=== PATIENT | female | born 1970 | race Caucasian/White ===

== ENCOUNTER 2019-07-07 11:51 | Outpatient (CLI) | payer OTHER, SELFPAY ==
--- NOTE | ~2019-07-07 | XR_ITS ---
EXAMINATION: XR chest 2V 07/07/2019 12:19 INDICATION: Cough PROCEDURE: 2 view chest COMPARISON: No prior studies for comparison. FINDINGS: The lungs are clear. The cardiomediastinal silhouette is within normal limits. There are no pleural effusions. There is no pneumothorax suspected. IMPRESSION: 1: NO ACUTE CARDIOPULMONARY DISEASE. Reviewed, dictated and finalized at location B. ICAL COORDINATOR
== END 2019-07-07 11:52 | disposition home or self-care (01) ==
LOC: ANHIMG 11:58
PROVIDERS: PCP Family Medicine; Visit Provider Physician Assistant
DX: R05 Cough (principal); R06.02 Shortness of breath
CPT/HCPCS: 71046

== ENCOUNTER 2019-08-01 19:36 | Emergency (ER) | payer OTHER, SELFPAY ==
--- NOTE | ~2019-08-01 | XR_ITS ---
EXAMINATION: XR_[id number]_CR EXAM DATE: 08/01/2019 20:01 INDICATION: Right rib pain after cough. TECHNIQUE: Frontal projection of the upper right ribs, frontal projection of the lower right ribs, ob lique projection of the right ribs, frontal chest x-ray(s) for interpretation. Comparison is made to prior examination from 07/07/2019. FINDINGS: There are no displaced acute right rib fractures identified. There is no soft tissue abno rmality seen. No confluent consolidation, pneumothorax or pleural effusion suspected. Consider educat ing patient that even if there is a radiographically occult nondisplaced rib fracture, there is no sp ecific treatment other than to refrain from activity that prevents healing. IMPRESSION: No displaced right rib fractures. Reviewed, dictated and finalized at location A.
[2019-08-01 19:42] VITALS: BP 153/86; PULSE 86; RESP 20; TEMP 36.9; O2SAT 100
--- NOTE | 2019-08-01 19:59 | ED.GENADULT ---
HPI - General Adult General Chief complaint: Unspecified Stated complaint: cough, rib pain Time Seen by Provider: 08/01/19 19:58 Source: patient and RN notes reviewed Mode of arrival: ambulatory Limitations: no limitations History of Present Illness HPI narrative: Pt is a 48 y/o female who presents to the ED with c/o rt posterior rib pain starting roughly 45 minutes ago this evening. She notes that she has had a cough for awhile, and states that she is currently on her 3rd round of steroids. Pt notes that she simultaneously coughed and twisted her torso this evening, when she felt a pop in her rt lower posterior ribs. She states that she has had pain in her rt lower posterior ribs ever since. Pt denies any recent fever or chills. MD complaint: Rib Pain Onset (ago): minute(s) (45) Location: back (rt lower posterior ribs) Associated symptoms: cough Related Data Allergies Allergy/AdvReac Type Severity Reaction Status Date / Time amoxicillin Allergy Unknown Itching Verified 07/07/19 15:27 Review of Systems Review of Systems: All systems reviewed & are unremarkable except as noted in HPI and below Constitutional: Constitutional: Denies chills and Denies fever(s) Respiratory: Respiratory: Reports cough Musculoskeletal: Musculoskeletal: Reports back pain (rt lower posterior rib pain) PMFSH Past Medical History Medical History Cough GERD (gastroesophageal reflux disease) Surgical History Surgical History Hx of tonsillectomy S/P bilateral mastectomy Family History Family History (Updated 11/29/15 @ 23:19 by DOCTOR UNKNOWN) Father Hypertension Mother Family history of malignant neoplasm of breast in first degree relative Social History Social History Smoking status: Never smoker Second hand tobacco smoke exposure: No Alcohol intake: never Substance use: never Substance use type: does not use Gender identity (if verbalized by the patient): Female Exam Narrative: Exam Narrative: APPEARANCE: No acute distress, nontoxic, resting in bed EYES: EOMI HEENT: Normocephalic, atraumatic, OMM RESPIRATORY: No respiratory distress Clear to auscultation bilaterally with no rhonchi wheezing or rales. CARDIOVASCULAR: Regular rate and rhythm without murmurs rubs or gallops. ABDOMINAL: Soft, nontender, nondistended, no rebound or guarding MUSCULOSKELETAl: Moves all extremities. No clubbing, cyanosis or edema. Back: Tender to palpation over posterior lateral right ribs and region of ribs 9 and 10, pain increased with deep inspiration coughing and rotation of the torso no midline thoracic lumbar tenderness palpation NEURO: Awake and alert. Following commands, speech normal, no focal deficits SKIN:: Warm, dry. No rashes lesions or abrasions PSYCHIATRIC: Normal affect/mood, Course Course Emergency Course: Discussed with patient results of workup and diagnosis. Discussed need for follow-up with primary care, proper use of medication, and reasons to return to the emergency department. Patient understands and agrees to current treatment plan. Patient is currently on inhaler steroids and Tessalon Perles Vital Signs Vital signs: Vital Signs Temperature 98.5 F 08/01/19 19:42 Pulse Rate 86 08/01/19 19:42 Respiratory Rate 20 08/01/19 19:42 Blood Pressure 153/86 H 08/01/19 19:42 Pulse Oximetry 100 08/01/19 19:42 Temperature 98.5 F 08/01/19 19:42 Pulse Rate 86 08/01/19 19:42 Respiratory Rate 20 08/01/19 19:42 Blood Pressure 153/86 H 08/01/19 19:42 Pulse Oximetry 100 08/01/19 19:42 Medical Decision Making Vital Signs Vital Signs: Vital Signs Temperature 98.5 F 08/01/19 19:42 Pulse Rate 86 08/01/19 19:42 Respiratory Rate 20 08/01/19 19:42 Blood Pressure 153/86 H 08/01/19 19:42 Pulse Oximetry 100 08/01/19 19:42 Temperature 9
== END 2019-08-01 20:35 | disposition home or self-care (01) ==
PROVIDERS: Emergency Provider Emergency Medicine; PCP Family Medicine
DX: R07.89 Other chest pain (principal); K21.9 Gastro-esophageal reflux disease without esophagitis; Z90.13 Acquired absence of bilateral breasts and nipples
CPT/HCPCS: 71101; 99283; A9270

== ENCOUNTER 2019-08-23 14:11 | Outpatient (CLI) | payer OTHER, SELFPAY | END 2019-08-23 14:12 | disposition home or self-care (01) | PROVIDERS: PCP Family Medicine; Visit Provider Physician Assistant | DX: R05 Cough (principal) | CPT/HCPCS: 36415; 86615 ==

== ENCOUNTER 2020-03-23 09:52 | Outpatient (CLI) | payer OTHER, SELFPAY | END 2020-03-23 09:53 | disposition home or self-care (01) | PROVIDERS: PCP Family Medicine; Visit Provider Obstetrics & Gynecology Gynecology | DX: E55.9 Vitamin D deficiency, unspecified (principal) | CPT/HCPCS: 36415; 82306 ==

== ENCOUNTER 2020-05-24 07:07 | Outpatient (CLI) | payer OTHER, SELFPAY ==
[2020-05-24 07:30] LABS: Add Urine Microscopic? YES; Appearance Urine Cloudy (Clear); Basophils Percent Auto 0.4 % (0.2-1.2); Bilirubin Urine Negative (Negative); Blood Urine Negative (Negative); Color Urine Yellow (Yellow); Eosinophils Absolute Auto 0.1 K/mm3 (0-0.3); Eosinophils Percent Auto 1.6 % (0-4.4); Glucose Urine UA Negative (Negative); Hematocrit 36.3 % (37.0-47.0); Hemoglobin 12.1 g/dL (12.0-15.0); Immature Granulocyte Absolute 0.03 K/mm3 (0.00-0.031); Immature Granulocyte Percent A 0.3 % (0-0.5); Ketones Urine Negative (Negative); Leukocyte Esterase Ur Negative LEU/UL (NEGATIVE); Lymphocytes Absolute Auto 1.64 K/mm3 (0.9-3.2); Lymphocytes Percent Auto 18.3 % (18.3-44.2); Mean Corpuscular HGB Conc 33.3 g/dl (32-36); Mean Platelet Volume 9.2 fl (7.4-10.4); Monocytes Absolute Auto 0.7 K/mm3 (0.1-0.6); Monocytes Percent Auto 7.7 % (2.6-8.5); Mucus Urine Rare /lpf; Neutrophils Absolute Auto 6.4 K/mm3 (1.3-6.7); Neutrophils Percent Auto 71.7 % (45.5-73.1); Nitrate Urine Negative (Negative); Platelet Count Result 273 k/mm3 (150-375); Protein Urine Negative (Negative); Red Blood Count 3.78 M/mm3 (4.2-5.4); Red Cell Distribution Width 12.2 % (11.5-14.5); Squamous Epithelial Cell Urine Many /hpf (Few); Urobilinogen Urine Negative mg/dL (<2.0); White Blood Count 8.9 K/mm3 (4.5-10.0)
[2020-05-24 07:35] LABS: Alanine Aminotransferase 25 U/L (4-35); Albumin Level 3.7 g/dL (3.5-5.1); Alkaline Phosphatase 51 U/L (38-126); Anion Gap 3 mmol/L (8-16); Aspartate Amino Transferase 22 U/L (14-36); Bilirubin,Total 0.3 mg/dL (0.2-1.3); Blood Urea Nitrogen 15 mg/dL (7-17); Calcium 8.6 mg/dL (8.4-10.2); Carbon Dioxide 28 mmol/L (22-30); Chloride 106 mmol/L (98-107); Cholesterol 171 mg/dL (0-200); Estimated Glomerular Filt Rate > 60; Glucose 102 mg/dL (65-105); HDL Direct 54 mg/dL; Potassium 4.4 mmol/L (3.4-5.0); Sodium 137 mmol/L (137-145); Triglycerides 149 mg/dL (<150)
[2020-05-24 07:46] LABS: LDL Cholesterol Direct 85 mg/dL
[2020-05-24 08:01] LABS: Hemoglobin A1C 5.5 % (<5.7)
== END 2020-05-24 07:08 | disposition home or self-care (01) ==
PROVIDERS: Family Provider Hospitalist; PCP Family Medicine; Visit Provider Nurse Practitioner Family
DX: Z00.00 Encounter for general adult medical examination without abnormal findings (principal); G47.33 Obstructive sleep apnea (adult) (pediatric); Z85.3 Personal history of malignant neoplasm of breast; R73.01 Impaired fasting glucose; E78.2 Mixed hyperlipidemia
CPT/HCPCS: 36415; 80053; 80061; 81001; 83036; 84443; 85025

== ENCOUNTER 2020-05-27 16:51 | Outpatient (CLI) | payer OTHER, SELFPAY ==
[2020-05-27 17:13] LABS: Add Urine Microscopic? YES; Appearance Urine Clear (Clear); Bilirubin Urine Negative (Negative); Blood Urine Negative (Negative); Color Urine Yellow (Yellow); Glucose Urine UA Negative (Negative); Ketones Urine Negative (Negative); Leukocyte Esterase Ur Negative LEU/UL (NEGATIVE); Mucus Urine Rare /lpf; Nitrate Urine Negative (Negative); Protein Urine Negative (Negative); RBC Urine 0-2 /hpf (0-2); Specific Grav Ur 1.021 (1.001-1.035); Squamous Epithelial Cell Urine Moderate /hpf (Few); Urobilinogen Urine Negative mg/dL (<2.0); WBC Urine 0-3 /hpf (0-3)
== END 2020-05-27 16:52 | disposition home or self-care (01) ==
LOC: ANHLAB 16:52
PROVIDERS: Family Provider Hospitalist; PCP Family Medicine; Visit Provider Nurse Practitioner Family
DX: N39.0 Urinary tract infection, site not specified (principal)
CPT/HCPCS: 81001; 87086; 87186

== ENCOUNTER 2020-07-11 14:47 | Outpatient (CLI) | payer OTHER, SELFPAY | END 2020-07-11 14:48 | disposition home or self-care (01) | LOC: ANHCOVIDVC 14:47 | PROVIDERS: PCP Family Medicine | DX: Z23 Encounter for immunization (principal) | CPT/HCPCS: 0001A; 91300 ==

== ENCOUNTER 2020-08-01 14:44 | Outpatient (CLI) | payer OTHER, SELFPAY | END 2020-08-01 14:45 | disposition home or self-care (01) | LOC: ANHCOVIDVC 14:44 | PROVIDERS: PCP Family Medicine | DX: Z23 Encounter for immunization (principal) | CPT/HCPCS: 0002A; 91300 ==

== ENCOUNTER 2020-12-27 07:30 | Outpatient (CLI) | payer OTHER, SELFPAY ==
--- NOTE | ~2020-12-27 | US_ITS ---
EXAMINATION: US soft tissue abdomen EXAM DATE: 12/27/2020 08:01 INDICATION: R19.00 - Intra-abdominal and pelvic swelling, mass and sasha... TECHNIQUE: Multiple grayscale and Doppler images of the abdomen soft tissue symptomatic region were o btained (by a technologist who performed the scan) and subsequently reviewed. There is no prior stud y for comparison. FINDINGS: Scanning in the midline superior to the umbilicus demonstrates some thinning or dehiscence of the ant erior abdominal wall with omentum and bowel identified deep to this. No superimposed focal wall defec t or hernia identified. IMPRESSION: Midline abdominal wall thinning/dehiscence without superimposed focal hernia. Reviewed, dictated and finalized at location A. IMPRESSION: Midline abdominal wall thinning/dehiscence without superimposed foc al hernia.
== END 2020-12-27 07:31 | disposition home or self-care (01) ==
PROVIDERS: PCP Family Medicine; Visit Provider Physician Assistant
DX: R19.00 Intra-abdominal and pelvic swelling, mass and lump, unspecified site (principal)
CPT/HCPCS: 76705

== ENCOUNTER 2021-01-24 15:51 | Outpatient (CLI) | payer OTHER, SELFPAY ==
--- NOTE | ~2021-01-24 | CT_ITS ---
EXAMINATION: CT abdomen pelvis wo con DATE: 01/24/2021 16:15 INDICATION: Abdominal pain with intra-abdominal and pelvic swelling, mass and lump. TECHNIQUE: Computed tomography (CT) of the abdomen and pelvis was performed without intravenous contr ast. Automated exposure control and iterative reconstruction technique were employed. The dose-length product was 1442.53 mGy-cm. COMPARISON: None FINDINGS: Lung bases are clear. Heart size is normal. No pericardial or pleural effusion. Bilateral breast impl ants. Small sliding-type hiatal hernia. Liver, gallbladder, pancreas, spleen, bilateral adrenal gland s and kidneys are normal. Bladder, anteverted uterus and left adnexa are unremarkable. 3.0 cm right a dnexal cyst. Bowels including the appendix are normal. Mild diastases of the supraumbilical rectus ab dominous muscle. Tiny fat-containing umbilical hernia. No free intraperitoneal gas or fluid. No patho logically enlarged abdominal or pelvic lymphadenopathy. Mild likely physiologic anterior wedging at T 11 and T12. Mild thoracic and mild lumbar spondylosis. IMPRESSION: 1. Mild kyphosis at the supraumbilical rectus abdominous muscles and tiny fat-containing umbilical he rnia. No abnormal masses identified. Reviewed, dictated and finalized at location A. IMPRESSION: 1. Mild kyphosis at the supraumbilical rectus abdominous muscles and tiny fat-c ontaining umbilical hernia. No abnormal masses identified.
== END 2021-01-24 15:52 | disposition home or self-care (01) ==
PROVIDERS: PCP Family Medicine; Visit Provider Physician Assistant
DX: N85.8 Other specified noninflammatory disorders of uterus (principal); K42.9 Umbilical hernia without obstruction or gangrene; R10.9 Unspecified abdominal pain
CPT/HCPCS: 74176

== ENCOUNTER 2021-03-24 00:37 | Day surgery (SDC) | payer OTHER, SELFPAY ==
--- NOTE | 2021-03-24 07:38 | P.PNAN_ITS ---
Anes - Initial Pre Proc Eval Procedure: Operation Date: 03/24/21 09:30 Proposed Procedures p Screening Colonoscopy - Armen Gallagher MD Date/Time: 03/24/21 07:38 Surgeon: Armen Gallagher MD Pre Op Diagnosis: neoplasm screening Patient Data Age: 50 Gender: F Height: 1.68 m Weight: Allergies Allergy/AdvReac Type Severity Reaction Status Date / Time amoxicillin Allergy Unknown Itching Verified 03/24/21 08:42 Home Medications Medication Instructions Recorded Confirmed Type No Home Medications 12/12/20 03/24/21 History Patient hx anesthesia problems: none Family hx anesthesia problems: none Results Review: All pre-operative results and documents have been reviewed as part of the pre-operative evaluation. [facility] Past Medical History Medical History (Updated 03/24/21 @ 07:39 by Oliver Andersen MD) Chronic cough Cough Eruptive xanthoma GERD (gastroesophageal reflux disease) H/O malignant neoplasm of breast Obesity ZACK (obstructive sleep apnea) Surgical History Surgical History Hx of tonsillectomy S/P bilateral mastectomy Family History Family History Father Hypertension Mother Family history of malignant neoplasm of breast in first degree relative Social History Social History Smoking status: Never smoker Second hand tobacco smoke exposure: No Alcohol intake: never Substance use: never Substance use type: does not use Living arrangements: with family Gender identity (if verbalized by the patient): Female Spiritual care concerns: No Anes - Eval Final PreProcedure Day of Procedure 03/24/21 07:38 Patient weight: obese Heart: regular rate and rhythm Lungs: clear to auscultation and normal air movement Airway: Mallampati scale class II Neurological: alert and oriented Last oral intake: >/= 8 hours ASA classification: III Emergent: no Anesthetic plan: proceed Anesthesia type and monitoring: general GIVS Results Review: All pre-operative results and documents have been reviewed as part of the pre-operative evaluation. Informed Consent: The patient's anesthetic plan and its attendant risks and benefits were discussed with the patient/family/POA. Questions were solicited and answers provided to the satisfaction of the patient/family/POA.
[2021-03-24 08:43] VITALS: BP 130/81; PULSE 78; RESP 19; TEMP 35.8; O2SAT 100; BMI 39.2
[2021-03-24] MEDS: LACTATED RINGERS 1,000 ML 150 ML IV CONT (08:45)
--- NOTE | 2021-03-24 09:17 | PM.HPGS ---
History of Present Illness History of Present Illness Consent: Risks, benefits, and alternatives have been discussed and questions answered. Patient agrees to proceed with procedure. Chief complaint: neoplasm screening Narrative: Kae Robles is a 50 year old female here for screening colonoscopy, she had one more than 10 years ago for abdominal pain Review of Systems Constitutional: Constitutional: Denies headache(s) and Denies weakness Eyes: Eyes: Denies blurry vision ENT: Reports Normal hearing present, Denies headache(s) and Denies neck pain Cardiovascular: Cardiovascular: Denies chest pain and Denies dyspnea Respiratory: Respiratory: Denies dyspnea Gastrointestinal: Gastrointestinal: Reports no additional gastrointestinal complaints Genitourinary: Genitourinary: Denies dysuria Musculoskeletal: Musculoskeletal: Denies neck pain Integumentary/Breasts: Skin/Breast: Denies dry skin Neurologic: Reports Normal hearing present, Denies headache(s) and Denies weakness Psychiatric: Psychiatric: Denies anxiety Endocrine: Endocrine: Denies change in body appearance Hematologic/Lymphatic: Hematologic/Lymphatic: Denies easy bleeding Allergic/Immunologic: Allergic/Immunologic: Denies urticaria PMFSH Past Medical History Medical History (Updated 03/24/21 @ 09:18 by Armen Gallagher MD) Chronic cough Colon cancer screening Cough Eruptive xanthoma GERD (gastroesophageal reflux disease) H/O malignant neoplasm of breast Obesity ZACK (obstructive sleep apnea) Surgical History Surgical History Hx of tonsillectomy S/P bilateral mastectomy Family History Family History Father Hypertension Mother Family history of malignant neoplasm of breast in first degree relative Social History Social History Smoking status: Never smoker Second hand tobacco smoke exposure: No Alcohol intake: never Substance use: never Substance use type: does not use Living arrangements: with family Gender identity (if verbalized by the patient): Female Spiritual care concerns: No Meds Home Medications and Allergies Home Medications Medication Instructions Recorded Confirmed Type No Home Medications 12/12/20 03/24/21 History Allergies Allergy/AdvReac Type Severity Reaction Status Date / Time amoxicillin Allergy Unknown Itching Verified 03/24/21 08:42 Vital Signs Vital Signs - 24 hr 03/24/21 08:43 Temperature 96.4 F L Pulse Rate 78 Respiratory Rate 19 Blood Pressure 130/81 Pulse Oximetry 100 Exam Const: General: comfortable and no acute distress HENMT: General nose exam: Normal nares present Eyes: General: appearance normal, both eyes and all related structures Neck: Neck: no JVD Resp: Auscultation: clear to auscultation bilaterally Cardio: Rate: regular rate Rhythm: regular rhythm GI: Inspection: non-distended GI Palp: Yes Soft to palpation Skin: General skin exam: normal color Neuro: General: gait normal Speech: normal speech Extrem: General: normal to inspection Psych: Mental Status: mental status grossly normal Assessment and Plan Assessment and plan (1) Colon cancer screening: Code(s): Z12.11 - Encounter for screening for malignant neoplasm of colon Status: Acute Assessment and Plan: colonoscopy
[2021-03-24 09:43] VITALS: BP 82/45; PULSE 68; RESP 16; O2SAT 100
[2021-03-24 09:53] VITALS: BP 98/58; PULSE 64; RESP 16; O2SAT 100
[2021-03-24 10:03] VITALS: BP 114/71; PULSE 68; RESP 16; O2SAT 100
== END 2021-03-24 10:11 | disposition home or self-care (01) ==
PROVIDERS: PCP Family Medicine; Visit Provider Internal Medicine Gastroenterology
PROC: 0DJD8ZZ Inspection of Lower Intestinal Tract, Via Natural or Artificial Opening Endoscopic (ICD-10-PCS; CPT 45378; principal; 2021-03-24 09:30)
DX: Z12.11 Encounter for screening for malignant neoplasm of colon (principal); K64.8 Other hemorrhoids; K21.9 Gastro-esophageal reflux disease without esophagitis; G47.33 Obstructive sleep apnea (adult) (pediatric); E66.9 Obesity, unspecified; Z68.39 Body mass index [BMI] 39.0-39.9, adult
CPT/HCPCS: 45378; J2704; J7120

== ENCOUNTER 2021-03-28 00:40 | Emergency (ER) | payer OTHER, SELFPAY ==
[2021-03-28] VITALS (7 sets, daily range): BP systolic 136–162; BP diastolic 84–93; PULSE 83–101; RESP 14–19; TEMP 36.6; O2SAT 98–100
--- NOTE | ~2021-03-28 | CT_ITS ---
EXAMINATION: CT abdomen pelvis w con INDICATION: Upper abdominal pain TECHNIQUE: Computed tomographic images of the abdomen and pelvis were obtained after the administrati on of 100 cc of Omnipaque 350 intravenous contrast. The dose-length product (DLP) was 1613.79 mGy-cm. Automated exposure control and iterative reconstruction technique were employed. COMPARISON: 01/24/2021 FINDINGS: Minimal dependent atelectasis is present in the lung bases. The heart size is normal. There appear be changes of bilateral mastectomy and reconstruction. Small areas of fat necrosis are noted medially in the subcutaneous tissues of the chest. There is mild distention of the gallbladder. There appears to be subtle pericholecystic fat stranding. The liver, spleen, pancreas, and adrenal glands are normal. The kidneys are unremarkable. No pathologically enlarged abdominal or pelvic lymph nodes are identified. There is no free intraperitoneal gas or evidence of bowel obstruction. The appendix i s normal. IMPRESSION: 1. Mild gallbladder distention and possible pericholecystic fat stranding which can be seen in the se tting of acute cholecystitis. Recommend correlation for right upper quadrant tenderness with follow-u p ultrasound or nuclear hepatobiliary scan if there is clinical concern for acute cholecystitis. Recommendation for correlation for acute cholecystitis was communicated to the Emergency Department a t 0310 hours on 03/28/2021 by the [employer] Radiologist. Reviewed, dictated and finalized at location A. OPERATIONS LEAD IMPRESSION: 1. Mild gallbladder distention and possible pericholecystic fat stranding which can be seen in the setting of acute cholecystitis. Recommend correlation for r ight upper quadrant tenderness with follow-up ultrasound or nuclear hepatobilia ry scan if there is clinical concern for acute cholecystitis. Recommendation for correlation for acute cholecystitis was communicated to the Emergency Department at 0310 hours on 03/28/2021 by the [employer] Radiologist.
--- NOTE | 2021-03-28 01:26 | ECG_ITS ---
Measurements Intervals [place] Rate: 93 P: [place]: 0 QRS: 72 QRSD: 105 T: 73 QT: 369 QTc: 460 Interpretive Statements SINUS RHYTHM BORDERLINE AV CONDUCTION DELAY BORDERLINE ECG Electronically Signed On 03-28-2021 7:55:46 [employer] by Nav Conway D.O.
--- NOTE | 2021-03-28 01:28 | ED.ABDPAIN ---
HPI - Abdominal Pain General Chief Complaint: Abdominal Pain Stated Complaint: abd pain Time Seen by Provider: 03/28/21 00:56 Source: patient and RN notes reviewed Mode of arrival: ambulatory Limitations: no limitations History of Present Illness HPI narrative: This is a 50 year old female who presents for evaluation of upper abdominal pain. This pain started around midnight and she describes as feeling her stomach pressure making it difficulty to breath. She also has pain that radiates to her back. She has nausea but denies vomiting, fever or diarrhea. Denies having similar pain in the past. She has not taken anything for her pain. She had colonoscopy4 days ago but states she has been having BM since her procedure. Denies history of pancreatitis or gallstones. Related Data Allergies Allergy/AdvReac Type Severity Reaction Status Date / Time amoxicillin Allergy Unknown Itching Verified 03/28/21 00:57 Review of Systems Review of Systems: All systems reviewed & are unremarkable except as noted in HPI and below PMFSH Past Medical History Medical History Chronic cough Colon cancer screening Cough Eruptive xanthoma GERD (gastroesophageal reflux disease) H/O malignant neoplasm of breast Obesity ZACK (obstructive sleep apnea) Surgical History Surgical History Hx of tonsillectomy S/P bilateral mastectomy Family History Family History Father Hypertension Mother Family history of malignant neoplasm of breast in first degree relative Social History Social History Smoking status: Never smoker Second hand tobacco smoke exposure: No Alcohol intake: never Substance use: never Substance use type: does not use Gender identity (if verbalized by the patient): Female Spiritual care concerns: No Exam Const: General: no acute distress and alert Nutritional Appearance: obese Orientation/consciousness: patient oriented x3 Eyes: EOM: EOMs intact bilaterally Resp: Effort & Inspection: normal respiratory effort and no retractions Auscultation: clear to auscultation bilaterally Cardio: Rate: regular rate Rhythm: regular rhythm Heart sounds: no murmurs GI: Inspection: distended GI Palp: Yes Soft to palpation, Yes Tenderness to palpation present (GI) (epigastric), No Guarding due to palpation present (GI) and No Rigid due to palpation Auscultation: Hypoactive bowel sounds present Back/Spine/Pelvis: Back: no CVA tenderness Neuro: General: patient oriented x3, moves all extremities and CN's II-XI intact bilaterally Psych: Mental Status: mental status grossly normal Affect: normal affect Course Reevaluation(s) Reevaluation #1: PAtient reports her pain is at 1/10. I discussed she may have cholecystitis . I discussed outpatient treatment vs inpatient. She is agreeable with outpatient treatment. She has no fever or significant leukocytosis. She does have transaminitis with normal bilirubin. Date: 03/28/21 Time: 03:37 Consultations Consultation #1: I Discussed case with Dr. Roman of general surgery patient presentation and labs abnormalities. He states patient can be treated as outpatient with antibiotics, low fat diet. She will need to have LFTs rechecked. Date: 03/28/21 Time: 03:39 Vital Signs Vital signs: Vital Signs Temperature 97.8 F 03/28/21 00:49 Pulse Rate 101 H 03/28/21 00:49 Respiratory Rate 18 03/28/21 00:49 Blood Pressure 151/89 H 03/28/21 00:49 Pulse Oximetry 100 03/28/21 00:49 Temperature 97.8 F 03/28/21 00:49 Pulse Rate 83 03/28/21 04:21 Respiratory Rate 16 03/28/21 04:21 Blood Pressure 136/86 03/28/21 04:21 Pulse Oximetry 98 03/28/21 04:21 MDM - Abdominal Pain Lab Data Attestation: I reviewed the patient's lab results. Re
[2021-03-28] MEDS: ONDANSETRON INJ 4 MG/2 ML VIAL IV PUSH (01:36)
[2021-03-28] MEDS: MORPHINE SULFATE (*CRX) 4 MG/ML INJ IV PUSH (01:37)
[2021-03-28] MEDS: PANTOPRAZOLE SODIUM IV 40 MG VIAL IV PUSH (01:40)
[2021-03-28 01:42] LABS: Basophils Absolute Auto 0.1 K/mm3 (0.0-0.1); Basophils Percent Auto 0.5 % (0.2-1.2); Eosinophils Absolute Auto 0.3 K/mm3 (0-0.3); Eosinophils Percent Auto 2.7 % (0-4.4); Hematocrit 38.3 % (37.0-47.0); Hemoglobin 12.9 g/dL (12.0-15.0); Immature Granulocyte Absolute 0.03 K/mm3 (0.00-0.031); Immature Granulocyte Percent A 0.3 % (0-0.5); Lymphocytes Absolute Auto 1.77 K/mm3 (0.9-3.2); Lymphocytes Percent Auto 17.6 % (18.3-44.2); Mean Corpuscular HGB Conc 33.7 g/dl (32-36); Mean Corpuscular Hemoglobin 31.9 pg (26-34); Mean Corpuscular Volume 94.8 fl (80-100); Mean Platelet Volume 9.3 fl (7.4-10.4); Monocytes Percent Auto 9.4 % (2.6-8.5); Neutrophils Percent Auto 69.5 % (45.5-73.1); Platelet Count Result 309 k/mm3 (150-375); Red Blood Count 4.04 M/mm3 (4.2-5.4); Red Cell Distribution Width 12.6 % (11.5-14.5); White Blood Count 10.1 K/mm3 (4.5-10.0)
[2021-03-28 02:22] LABS: Alanine Aminotransferase 119 U/L (4-35); Albumin Level 4.2 g/dL (3.5-5.1); Alkaline Phosphatase 75 U/L (38-126); Anion Gap 6 mmol/L (8-16); Aspartate Amino Transferase 268 U/L (14-36); Bilirubin,Total 0.6 mg/dL (0.2-1.3); Blood Urea Nitrogen 15 mg/dL (7-17); Calcium 8.9 mg/dL (8.4-10.2); Carbon Dioxide 28 mmol/L (22-30); Chloride 102 mmol/L (98-107); Estimated CRCL calculation 92 ml/min; Estimated Glomerular Filt Rate > 60; Glucose 126 mg/dL (65-110); Lipase 81 U/L (23-300); Potassium 3.6 mmol/L (3.4-5.0); Sodium 136 mmol/L (137-145); Troponin I < 0.012 ng/mL (0.000-0.034)
[2021-03-28 02:30] LABS: Add Urine Microscopic? YES; Appearance Urine Clear (Clear); Bilirubin Urine Negative (Negative); Blood Urine Negative (Negative); Color Urine Yellow (Yellow); Glucose Urine UA Negative (Negative); Ketones Urine Negative (Negative); Leukocyte Esterase Ur Negative LEU/UL (Negative); Mucus Urine Rare /lpf; Nitrate Urine Negative (Negative); Protein Urine Negative (Negative); Specific Grav Ur 1.029 (1.001-1.035); Squamous Epithelial Cell Urine Few /hpf (Few); WBC Urine 0-3 /hpf
[2021-03-28] MEDS: SODIUM CHLORIDE 0.9% IV 1,000 ML 999 ML IV CONT (02:42)
[2021-03-28] MEDS: levoFLOXacin 750 MG TABLET PO (03:56)
== END 2021-03-28 04:21 | disposition home or self-care (01) ==
PROVIDERS: Emergency Provider General Practice; PCP Family Medicine
DX: K81.9 Cholecystitis, unspecified (principal); K21.9 Gastro-esophageal reflux disease without esophagitis; G47.33 Obstructive sleep apnea (adult) (pediatric); E66.9 Obesity, unspecified; Z68.39 Body mass index [BMI] 39.0-39.9, adult; Z85.3 Personal history of malignant neoplasm of breast; Z90.13 Acquired absence of bilateral breasts and nipples; R94.31 Abnormal electrocardiogram [ECG] [EKG]
CPT/HCPCS: 36415; 74177; 80053; 81001; 81025; 83690; 84484; 85025; 93005; 96361; 96374; 96375; 99284; A9270; C9113; J2270; J2405; J7030; Q9967

== ENCOUNTER 2021-04-12 11:03 | Outpatient (CLI) | payer OTHER, SELFPAY ==
[2021-04-12 11:38] LABS: Alanine Aminotransferase 33 U/L (4-35); Albumin Level 4.5 g/dL (3.5-5.1); Alkaline Phosphatase 61 U/L (38-126); Amylase 75 U/L (30-110); Anion Gap 7 mmol/L (8-16); Aspartate Amino Transferase 23 U/L (14-36); Bilirubin,Total 0.5 mg/dL (0.2-1.3); Blood Urea Nitrogen 17 mg/dL (7-17); Calcium 9.1 mg/dL (8.4-10.2); Carbon Dioxide 26 mmol/L (22-30); Chloride 103 mmol/L (98-107); Estimated Glomerular Filt Rate > 60; Glucose 94 mg/dL (65-110); Lipase 61 U/L (23-300); Potassium 4.3 mmol/L (3.4-5.0); Sodium 136 mmol/L (137-145)
== END 2021-04-12 11:04 | disposition home or self-care (01) ==
LOC: ANHLAB 11:04
PROVIDERS: PCP Family Medicine; Visit Provider Surgery
DX: K80.00 Calculus of gallbladder with acute cholecystitis without obstruction (principal)
CPT/HCPCS: 36415; 80053; 82150; 82248; 83690; 86850; 86900; 86901

== ENCOUNTER 2021-04-16 01:21 | Day surgery (SDC) | payer OTHER, SELFPAY ==
[2021-04-09 15:19] VITALS: BMI 35.5
--- NOTE | 2021-04-09 15:35 | PC.NURSE ---
Report to the Outpatient Waiting Room, entrance under the green pavilion located off [facility], at time ___1130____ on date ___04/16/2021___. OR Time: _1330 . - You and your visitor will be asked a series of questions to screen for COVID 19 for your protection. - A mask is required within the hospital. - Only one visitor is allowed at this time. Patient visitors will be guided where to wait when not with patient. Preoperative COVID Testing Requirements: No COVID Test needed if: (proof is required; if not received patient will have Rapid Test prior to entry) - Patient has received COVID Vaccine at least 14 days prior to procedure date or - Patient has positive COVID test result within last 90 days of surgery date. COVID Test needed if above criteria is not met If not COVID vaccinated a COVID test must be conducted within 72 hours of surgery and patient is asked to isolate self from time of testing until procedure. You will go to the [facility] for your COVID testing. The [facility] site is located at the corner of [address] [facility]. You will only be called if COVID results are positive and your surgeon may reschedule your elective surgery date. Patients may have clear liquids (water, carbonated beverages, clear teas, apple juice) until 3 hours prior to surgery with a maximum of 20 ounces. - No food from midnight until time of surgery - Infants may have breast milk until 4 hours before surgery, infant formula 6 hours prior to surgery. - Children will be allowed to drink immediately following surgery. If applicable, please bring a bottle or sippy cup to assist with drinking. Juice, water, soda, and popsicles are readily available. For infants on formula, please bring formula the day of surgery. Pacifiers are allowed. Take the following medications with a SIP of water the morning of surgery: ____NONE Medications to discontinue per physician NONE Date to take last dose Please no make-up, nail argentine, hairspray, perfume, deodorant, or body powder the day of surgery. No jewelry (including any body piercings) or valuables the day of surgery, leave them at home. Please take a shower or bath the night before, or the morning of, surgery with an antibacterial soap. Wear comfortable, loose fitting clothing. Children are encouraged to wear pajamas. - Jewelry must be removed prior to entering the operating room. Rings and piercings that are not removed may be cut off. - The hospital will not accept responsibility for valuables. - Please leave all valuables, including medications, at home the day of surgery. If you are going home after surgery, a licensed transportation driver must drive you home. - NO public transportation without another adult. - We recommend that an adult stay with you for 24 hours following discharge. - We also recommend that you do not drive, make important decision, drink alcoholic beverages, or take any drugs that were not prescribed by your health care provider for at least 24 hours after your discharge time. For Pediatric surgeries, we recommend two adults accompany the child home (only one inside the building at this time). Follow any additional instructions given to you from your surgeon. Telephone instructions given to patient and asked if any additional questions and then verbalized understanding. Patient advised to call surgeon office or pre surgery nurse liaison [phone] if any additional questions.
[2021-04-16] VITALS (10 sets, daily range): BP systolic 121–160; BP diastolic 70–89; PULSE 67–109; RESP 12–18; TEMP 36.4–36.7; O2SAT 95–100; BMI 38.7
--- NOTE | 2021-04-16 10:34 | WPDHPUPDATE1 ---
History and Physical Update Update Date/Time: 04/16/21 10:34 History and Physical has been reviewed, including an updated exam of the patient. There are NO changes in the patient's condition. Risks, benefits, and alternatives have been discussed and questions answered. Patient agrees to proceed with procedure.
[2021-04-16] MEDS: ACETAMINOPHEN 500 MG TABLET 1000 MG PO (11:44)
[2021-04-16] MEDS: LACTATED RINGERS 1,000 ML 30 ML IV CONT ×2 (12:00→14:00)
--- NOTE | 2021-04-16 12:12 | P.PNAN_ITS ---
Anes - Initial Pre Proc Eval Procedure: Operation Date: 04/16/21 13:30 Proposed Procedures p Laparoscopic Cholecystectomy - Leticia Roman MD Date/Time: 04/16/21 12:12 Surgeon: Leticia Roman MD Pre Op Diagnosis: acute cholecystitis with cholelithiasis Patient Data Age: 50 Gender: F Height: 1.68 m Weight: 109 kg Allergies Allergy/AdvReac Type Severity Reaction Status Date / Time amoxicillin AdvReac Mild Itching Verified 04/16/21 11:43 Home Medications Medication Instructions Recorded Confirmed Type metronidazole 1 ea VAGINAL 2XW 04/09/21 04/09/21 History oxycodone 5 mg PO Q8H PRN 04/09/21 04/09/21 History Patient hx anesthesia problems: none Family hx anesthesia problems: none Results Review: All pre-operative results and documents have been reviewed as part of the pre-operative evaluation. [facility] Past Medical History Medical History Chronic cough Colon cancer screening Cough Eruptive xanthoma GERD (gastroesophageal reflux disease) H/O malignant neoplasm of breast Obesity ZACK (obstructive sleep apnea) Surgical History Surgical History H/O thumb surgery PIN IN THUMB. 2019-[facility] Hx of tonsillectomy S/P bilateral mastectomy Family History Family History Father Hypertension Mother Family history of malignant neoplasm of breast in first degree relative Social History Social History Smoking status: Never smoker Second hand tobacco smoke exposure: No Alcohol intake: current Alcohol use details: RARELY <1/WEEK Substance use: never Substance use type: does not use Living arrangements: with family Gender identity (if verbalized by the patient): Female Spiritual care concerns: No Anes - Eval Final PreProcedure Day of Procedure 04/16/21 12:12 Patient weight: obese Heart: regular rate and rhythm Lungs: clear to auscultation Airway: Mallampati scale class II Neurological: alert and oriented Last oral intake: >/= 8 hours ASA classification: III Emergent: no Anesthetic plan: proceed Anesthesia type and monitoring: general ETT and standard monitoring Results Review: All pre-operative results and documents have been reviewed as part of the pre-operative evaluation. Informed Consent: The patient's anesthetic plan and its attendant risks and benefits were discussed with the patient/family/POA. Questions were solicited and answers provided to the satisfaction of the patient/family/POA.
[2021-04-16] MEDS: KETOROLAC 15 MG/ML VIAL (*BKC) IV PUSH (12:19)
[2021-04-16] MEDS: ceFAZolin 2 GM/D5W 50 ML 2 GM/50 ML BAG IVPB (12:59)
[2021-04-16] MEDS: LIDO 1%/EPINEPHRINE 1:100,000 50 ML VIAL 30 ML INFILTRATE (13:20)
--- NOTE | 2021-04-16 13:57 | P.OP_ITS ---
Procedure Note - Detailed Date of Procedure 04/16/21 Pre-op Diagnosis acute cholecystitis with cholelithiasis Post-op Diagnosis same Procedure Performed Laparoscopic cholecystectomy Surgeon Leticia Roman MD Anesthesia general Indications 50 y/o F c acute cholecystitis, cholelithiasis presenting for interval cholecystectomy. Findings cholecystitis with cholelithiasis Description of Procedure The patient was taken to the operating room placed in the supine position. After adequate induction of general anesthesia, the patient was prepped and draped in normal sterile fashion. A time-out was then performed to verify the patient's identity as well as the procedure being performed. I then made a 5 mm incision in the infraumbilical region. Through this, a Veress needle was placed into the peritoneal cavity and CO2 gas was then insufflated. After adequate pneumoperitoneum was achieved, the Veress needle was removed and a 5 mm optiview trocar was placed through this incision under direct visualization. I then placed the laparoscope through this trocar site and under direct visualization placed a further 12 mm subxiphoid port as well as 2 additional 5 mm ports in the right upper abdomen. The gallbladder was then identified and was noted to be moderately inflamed, distended, and full of gallstones. The gallbladder was noted to have dense omental adhesions and an extensive lysis of adhesions was done to free the gallbladder. This was done both bluntly and with the Bovie cautery. I was then able to place a grasper at the dome of the gallbladder and this was retracted anterior and cephalad up over the liver. A 2nd retractor was then placed at the infundibulum and retracted laterally, this allowed visualization of the triangle of Calot. I then was able to visualize the cystic duct in its entirety from its proximal insertion into the gallbladder, to its distal junction with the common hepatic/common bile duct junction. At this point, I carefully skeletonized the proximal cystic duct with the [place] dissector. I then clipped and transected the proximal cystic duct. Next I visualized the cystic artery. Again the artery was skeletonized, clipped, and transected. I then used the Bovie cautery to take down the peritoneal attachments of the gallbladder off the liver bed. Once the gallbladder specimen was completely detached, an endo-pouch was placed through the 12 mm port site. I then placed the gallbladder specimen into the Endo pouch and removed the endo- pouch from the 12 mm port site. The specimen will now be sent to pathology for further review. I then copiously irrigated the right upper quadrant. Hemostasis was noted in the liver bed, the clips were noted to be in good position on both the cystic duct stump and the cystic artery stump. No other pathology was noted in the right upper quadrant. I then moved the laparoscope to the subxiphoid port. No iatrogenic injury or other pathology was noted in the lower abdomen. I then closed the 12 mm trocar site under direct visualization using the Christiano cone and 0 Vicryl suture. At this point, the abdomen was desufflated and all ports removed. All port sites were then closed with 4.O Monocryl subcuticular sutures. Dermabond was placed on each incision. The patient tolerated the procedure well, was extubated in the operating room postoperative and will be transferred to the recovery room in stable condition Estimated Blood Loss 5 Drains No Packing No Pathology yes Complications No immediate complications Condition stable Disposition PACU
[2021-04-16] MEDS: fentaNYL CITRATE INJ (*CRX) 100 MCG/2 ML VIAL 25 MCG IV PUSH ×3 (14:19→14:34)
[2021-04-16] MEDS: ONDANSETRON INJ 4 MG/2 ML VIAL IV PUSH (14:21)
[2021-04-16] MEDS: oxyCODONE HCL (*CRX) 5 MG TAB IR PO (15:41)
== END 2021-04-16 16:36 | disposition home or self-care (01) ==
PROVIDERS: PCP Family Medicine; Visit Provider Surgery
PROC: 0FT44ZZ Resection of Gallbladder, Percutaneous Endoscopic Approach (ICD-10-PCS; CPT 47562; principal; 2021-04-16 13:30)
DX: K80.10 Calculus of gallbladder with chronic cholecystitis without obstruction (principal); E66.9 Obesity, unspecified; Z68.38 Body mass index [BMI] 38.0-38.9, adult
CPT/HCPCS: 47562; 88304; A9270; J0690; J1885; J2250; J2270; J2405; J3010; J7120

== ENCOUNTER 2021-12-04 11:45 | Outpatient (CLI) | payer OTHER, SELFPAY ==
[2021-12-04 11:58] LABS: Basophils Percent Auto 0.4 % (0.2-1.2); Eosinophils Absolute Auto 0.1 K/mm3 (0-0.3); Eosinophils Percent Auto 1.9 % (0-4.4); Hematocrit 38.1 % (37.0-47.0); Hemoglobin 12.5 g/dL (12.0-15.0); Immature Granulocyte Absolute 0.03 K/mm3 (0.00-0.031); Immature Granulocyte Percent A 0.4 % (0-0.5); Lymphocytes Percent Auto 29.3 % (18.3-44.2); Mean Corpuscular HGB Conc 32.8 g/dl (32-36); Mean Corpuscular Hemoglobin 31.3 pg (26-34); Mean Corpuscular Volume 95.3 fl (80-100); Mean Platelet Volume 9.1 fl (7.4-10.4); Monocytes Absolute Auto 0.7 K/mm3 (0.1-0.6); Monocytes Percent Auto 10.1 % (2.6-8.5); Neutrophils Absolute Auto 3.9 K/mm3 (1.3-6.7); Neutrophils Percent Auto 57.9 % (45.5-73.1); Platelet Count Result 324 k/mm3 (150-375); Red Cell Distribution Width 12.4 % (11.5-14.5); White Blood Count 6.8 K/mm3 (4.5-10.0)
[2021-12-04 12:08] LABS: Alanine Aminotransferase 19 U/L (6-35); Albumin Level 4.3 g/dL (3.5-5.1); Alkaline Phosphatase 55 U/L (38-126); Anion Gap 9 mmol/L (8-16); Aspartate Amino Transferase 21 U/L (14-36); Bilirubin,Total 0.6 mg/dL (0.2-1.3); Blood Urea Nitrogen 15 mg/dL (7-17); Calcium 8.6 mg/dL (8.4-10.2); Carbon Dioxide 27 mmol/L (22-30); Chloride 102 mmol/L (98-107); Estimated Glomerular Filt Rate > 60; Glucose 89 mg/dL (65-110); Sodium 138 mmol/L (137-145)
[2021-12-04 13:14] LABS: Folic Acid 17.3 ng/mL (2.76->20)
[2021-12-04 13:38] LABS: Vitamin D 25 Hydroxy 32.8 ng/mL
== END 2021-12-04 11:46 | disposition home or self-care (01) ==
PROVIDERS: PCP Family Medicine; Visit Provider Nurse Practitioner Family
DX: R42 Dizziness and giddiness (principal); R53.83 Other fatigue; E03.9 Hypothyroidism, unspecified
CPT/HCPCS: 36415; 80053; 82306; 82607; 82746; 84443; 85025

== ENCOUNTER 2022-11-04 17:28 | Emergency (ER) | payer OTHER, SELFPAY ==
--- NOTE | 2022-11-04 17:34 | ED.EAR ---
HPI - Ear Problem General Chief complaint: Ear Stated complaint: Rt Ear Irritation Time Seen by Provider: 11/04/22 17:43 Source: patient Mode of arrival: ambulatory Limitations: no limitations History of Present Illness HPI Narrative: 51-year-old presents for complaint of pressure in the right ear since yesterday. Hears crackling when turning head. She states pain/pressure is mild, 3/10. She denies associated decreased hearing, ear drainage, tinnitus, dizziness, nausea, vomiting, or chills. MD Complaint: ear pain Related Data Home Medications Medication Instructions Recorded Confirmed ergocalciferol (vitamin D2) 1,250 1,250 mcg PO WEEKLY 11/04/22 11/04/22 mcg (50,000 unit) capsule Allergies Allergy/AdvReac Type Severity Reaction Status Date / Time amoxicillin AdvReac Mild Itching Verified 11/04/22 17:30 Review of Systems Review of Systems: CONSTITUTIONAL: Denies malaise, chills, or fever. EYES: Denies visual changes, redness, or discharge. ENT: Denies rhinorrhea, congestion, sinus pain, and sore throat. Reports ear pain CARDIOVASCULAR: Denies chest pain, palpitations, or edema. RESPIRATORY: Denies cough or dyspnea. GASTROINTESTINAL: Denies abdominal pain, nausea, vomiting, diarrhea SKIN: Denies rash or itching. MUSCULOSKELETAL: Denies myalgia. NEUROLOGIC: Denies headache. All systems reviewed & are unremarkable except as noted in HPI and below PMFSH Past Medical History Medical History Chronic cough Colon cancer screening Cough Eruptive xanthoma GERD (gastroesophageal reflux disease) H/O malignant neoplasm of breast Obesity ZACK (obstructive sleep apnea) Surgical History Surgical History H/O thumb surgery PIN IN THUMB. 2019-[facility] Hx laparoscopic cholecystectomy 04/16/21 Hx of tonsillectomy S/P bilateral mastectomy Family History Family History Father Hypertension Mother Family history of malignant neoplasm of breast in first degree relative Social History Social History Smoking status: Never smoker Second hand tobacco smoke exposure: No Alcohol intake: current Alcohol use details: RARELY <1/WEEK Substance use: never Substance use type: does not use Living arrangements: with family Occupation/Education: occupation Gender identity (if verbalized by the patient): Female Spiritual care concerns: No Comments At time of signature, agree with nursing past medical, surgical, social and family history. There is no relevant family history pertinent to the presenting complaint Exam Narrative: GENERAL: Well-appearing EYES: PERRLA, conjunctivae clear ENT: Nares clear. Mucous membranes moist. TMs pearly flores with dull light reflex bilaterally; mild right clear effusion; no tragal tenderness. Oropharynx not erythematous without lesions. Tonsils not enlarged and without exudate, no drooling, no hoarseness, no trismus, uvula absent. NECK: Supple. No lymphadenopathy CHEST: Clear to auscultation, breath sounds equal No respiratory distress, speaks in full sentences. HEART: Regular rate and rhythm. No murmur heard. SKIN: Warm, dry, no rash. NEURO: Alert and oriented x3. PSYCH: Normal mood and affect Course Course Emergency Course: Patient is aware of diagnosis, understands and agrees to treatment plan. Anticipatory guidance given. Patient agrees to follow-up as directed and is aware of reasons to seek care at the emergency department. Portions of this record may have been created with voice recognition software Level of Care: Express Care Visit Vital Signs Vital signs: Vital Signs Temperature 97.7 F 11/04/22 17:37 Pulse Rate 86 11/04/22 17:37 Respiratory Rate 18 11/04/22 17:37 Blood Pressure 139/88 11/04/22 17:37 P
[2022-11-04 17:37] VITALS: BP 139/88; PULSE 86; RESP 18; TEMP 36.5; O2SAT 99
== END 2022-11-04 17:55 | disposition home or self-care (01) ==
PROVIDERS: Emergency Provider Nurse Practitioner Family; PCP Family Medicine
DX: H92.01 Otalgia, right ear (principal); K21.9 Gastro-esophageal reflux disease without esophagitis; E66.9 Obesity, unspecified; Z68.41 Body mass index [BMI] 40.0-44.9, adult; Z85.3 Personal history of malignant neoplasm of breast; Z90.13 Acquired absence of bilateral breasts and nipples
CPT/HCPCS: 99211; G0463

== ENCOUNTER → 2023-01-14 12:15 | Outpatient (CLI) | payer OTHER, SELFPAY ==
--- NOTE | ~2023-01-14 | DEXA_ITS ---
Bone Density Report Name: BRENDON SUN Age: 52 Sex: Female Ethnicity: White Date of : 1970 Indication: postmenopausal; screening for osteoporosis; inflammatory bowel disease; hysterectomy; Referring Provider: SHELIA MARIN Study: Bone densitometry was performed. Exam Date: January 14, 2023 Accession number: [id number] Bone Density: Region BMD T-score Z-score Classification AP Spine (L1-L4) 1.282 2.1 3.0 Normal Femoral Neck (Left) 1.104 2.3 3.2 Normal Total Hip (Left) 1.411 3.8 4.4 Normal Femoral Neck (Right) 1.059 1.9 2.8 Normal Total Hip (Right) 1.297 2.9 3.5 Normal Total Hip Mean 1.354 3.4 4.0 Normal World Health Organization criteria for BMD impression classify patients as: Normal (T-score at or above -1.0), Osteopenia (T-score between -1.0 and -2.5), or Osteoporosis (T-score at or below -2.5). 10-year Fracture Risk: FRAX not reported because: All T-scores for Spine Total, Hip Total, Femoral Neck at or above -1.0 Clinical Information Provided by Patient: Has used the following medications: Vitamin D, Calcium Has the following medical conditions: Inflammatory bowel diseases, Hysterectomy Patient maximum height was 66 Menopause Age: 51 No regular weight bearing exercise Drinks caffeinated beverages Onset of menses at age 12 Number of children 2 Impression: The patient has normal bone mass. Discussion: LOW RISK OF FRACTURE; BONE DENSITY IS WELL ABOVE THE MINIMUM DESIRABLE LEVEL AND ABOVE AVERAGE FOR AGE AND SEX AT ALL SKELETAL SITES TESTED. This person's bone density is above expected limits for age and sex. This is rarely clinically significant, but should be pursued if there are significant musculoskeletal complaints. The patient should follow a healthful lifestyle (good nutrition with adequate calcium and vitamin D, and appropriate weight-bearing exercise). Follow-Up: Consider repeating this study in 5 years or sooner if there is some new clinical indication. Reported by: ROSA on 01/14/2023 12:34:00 PM. Reviewed, dictated and finalized at location [facility] CUMMINS
== END ==
PROVIDERS: PCP Family Medicine; Visit Provider Obstetrics & Gynecology Gynecology
DX: Z78.0 Asymptomatic menopausal state (principal)
CPT/HCPCS: 77080

== ENCOUNTER → 2023-01-14 12:17 | Outpatient (CLI) | payer OTHER, SELFPAY ==
--- NOTE | ~2023-01-14 | US_ITS ---
US soft tissue chest DATE: 01/14/2023 13:01 INDICATION: Patient feels 2 breast masses along the medial chest wall surgical status post bilateral mastectomy and breast reconstruction with implants TECHNIQUE: Real-time and color flow imaging targeted at area of clinical complaint COMPARISON: 03/28/2021 CT abdomen pelvis FINDINGS: In the medial left chest subcutaneous tissues along the medial margin of the left breast im plant there are 3 lesions. The largest measures 1.5 x 1.3 cm, with posterior shadowing, with suggesti on of calcification of the wall. This corresponds to a fatty density with thin soft tissue capsule al tenisha the lower left medial chest wall on 03/28/2021 CT abdomen pelvis examination. Another approximate ly 7.5 mm similar fatty lesion with soft tissue capsule is noted approximately 1 cm inferomedial to t he larger lesion. There are 2 smaller relatively sonolucent lesions in the same approximate area, measuring 6 x 6.8 mm and 4.4 x 4.8 mm. IMPRESSION: Probable benign fatty lesions of the medial chest wall subcutaneous tissues; consider CT chest correlation. Reviewed, dictated and finalized at [facility]. Reviewed, dictated and finalized at location [facility].
== END ==
PROVIDERS: PCP Family Medicine
DX: Z85.3 Personal history of malignant neoplasm of breast (principal); Z80.3 Family history of malignant neoplasm of breast
CPT/HCPCS: 76604

== ENCOUNTER 2023-02-13 08:37 | Emergency (ER) | payer OTHER, SELFPAY ==
[2023-02-13 08:42] VITALS: BP 124/87; PULSE 99; RESP 16; TEMP 36.9; O2SAT 97
--- NOTE | 2023-02-13 09:09 | ED.URI ---
HPI - URI/Sore Throat General Chief Complaint: Upper Respiratory Infection Stated Complaint: Strep symptoms Time Seen by Provider: 02/13/23 09:10 Source: patient, RN notes reviewed and old records reviewed Mode of arrival: ambulatory Limitations: no limitations History of Present Illness HPI Narrative: 52-year-old female presents to the [facility] with complaints of a sore throat, cough and ear pressure since Wednesday, 3 days. Recently been on a plane, . Onset (ago): day(s) (3) Treatments prior to arrival: none Related Data Home Medications Medication Instructions Recorded Confirmed ergocalciferol (vitamin D2) 1,250 1,250 mcg PO WEEKLY 11/04/22 11/04/22 mcg (50,000 unit) capsule Allergies Allergy/AdvReac Type Severity Reaction Status Date / Time amoxicillin AdvReac Mild Itching Verified 11/04/22 17:30 Review of Systems Review of Systems: All systems reviewed & are unremarkable except as noted in HPI and below Constitutional: Constitutional: Reports no additional constitutional complaints Eyes: Eyes: Reports no additional eye complaints ENT: Reports as per HPI, Reports otalgia and Reports sore throat Cardiovascular: Cardiovascular: Reports no additional cardiovascular complaints, Denies chest pain and Denies dyspnea Respiratory: Respiratory: Reports no additional respiratory complaints, Denies chest congestion, Denies cough and Denies dyspnea Gastrointestinal: Gastrointestinal: Reports no additional gastrointestinal complaints, Denies abdominal pain, Denies nausea and Denies vomiting Musculoskeletal: Musculoskeletal: Reports no additional musculoskeletal complaints Integumentary/Breasts: Skin/Breast: Reports system reviewed and no additional complaints, except as docu Neurologic: Reports system reviewed and no additional complaints, except as documented Psychiatric: Psychiatric: Reports no additional psychiatric complaints Allergic/Immunologic: Allergic/Immunologic: Reports no additional allergic/immunologic complaints [facility] Past Medical History Medical History Chronic cough Colon cancer screening Cough Eruptive xanthoma GERD (gastroesophageal reflux disease) H/O malignant neoplasm of breast Obesity ZACK (obstructive sleep apnea) Surgical History Surgical History H/O thumb surgery PIN IN THUMB. [facility] Hx laparoscopic cholecystectomy 04/16/21 Hx of tonsillectomy S/P bilateral mastectomy Family History Family History Father Hypertension Mother Family history of malignant neoplasm of breast in first degree relative Social History Social History Smoking status: Never smoker Second hand tobacco smoke exposure: No Alcohol intake: current Alcohol use details: RARELY <1/WEEK Substance use: never Substance use type: does not use Living arrangements: with family Occupation/Education: occupation Gender identity (if verbalized by the patient): Female Spiritual care concerns: No Comments At the time of my signature, I reviewed and agree with the nursing past medical, surgical, social, and family history. There is no relevant family history pertinent to the patient complaint. Exam Const: General: cooperative, healthy appearing, comfortable, no acute distress, well developed, alert and well nourished Nutritional Appearance: well nourished and obese Orientation/consciousness: patient oriented x3 Limitations: no limitations HENMT: Head: normal to inspection Ears: hearing grossly normal bilaterally, external ears normal, EAC's normal, mastoids normal, no periauricular adenopathy and TM abnormal with fluid behind the TM on the left; not erythematous Face/Nose/Sinus: Normal external nose present, Normal nares present, Normal nasal mucous m
== END 2023-02-13 09:23 | disposition home or self-care (01) ==
PROVIDERS: Emergency Provider Nurse Practitioner; PCP Family Medicine
DX: J02.9 Acute pharyngitis, unspecified (principal); R09.82 Postnasal drip; H65.02 Acute serous otitis media, left ear; K21.9 Gastro-esophageal reflux disease without esophagitis; Z85.3 Personal history of malignant neoplasm of breast; Z90.13 Acquired absence of bilateral breasts and nipples
CPT/HCPCS: 87081; 87880; 99213; G0463

== ENCOUNTER 2023-03-11 16:51 | Outpatient (CLI) | payer OTHER, SELFPAY ==
--- NOTE | ~2023-03-11 | XR_ITS ---
EXAMINATION: XR chest 2V DATE: 03/11/2023 17:01 INDICATION: Cough. Chest tightness. TECHNIQUE: Frontal and lateral views of the chest were obtained. COMPARISON: Chest 2 views 07/07/2019 FINDINGS: There is no pneumonia, pleural effusion, or pneumothorax. The heart size is normal. IMPRESSION: 1. No acute cardiopulmonary disease. Reviewed, dictated and finalized at location E. OMER OPERATOR
== END 2023-03-11 16:52 | disposition home or self-care (01) ==
LOC: ANHIMG 16:53
PROVIDERS: PCP Family Medicine; Visit Provider Physician Assistant
DX: R05.9 Cough, unspecified (principal)
CPT/HCPCS: 71046

== ENCOUNTER 2024-06-25 11:18 | Emergency (ER) | payer OTHER, SELFPAY ==
--- OUTSIDE RECORDS SUMMARY | 2024-06-25 11:19 | XMS_ITS | Clinical Summary ---
Author Organization [facility] Address [address] [place] [address] Care Team Providers Care Case Reviewer Name Role Phone Unavailable Primary Care Provider Unavailabl e Source Comments [facility],non-owned Affiliates and Associated Physician Practices is amultiple site organization consisting of ambulatory clinics and hospital sitesin [place], [place], [place] and [place]. This disclosure is being madepursuant to the Care Everywhere program and may not contain all information available regarding this patient. Last updated 18.[facility] Allergies Active Allergy Reactions Criticality Noted Date Comments Amoxicillin Itching 06/05/2019 Medications Be aware that medications may not be up to date on this document. Always verify current medications with the patient. No known medications Active Problems No known active problems Social History Tobacco Use Types Packs/Day Years Used Date Smoking Tobacco: Never Smokeless Tobacco: Never Alcohol Use Standard Drinks/Week Comments No 0 (1 standard drink = 0.6 oz pur e alcohol) Sex and Gender Information Value Date Recorded Sex Assigned at Not on file Gender Identity Not on file Sexual Orientation Not on file Last Filed Vital Signs Vital Sign Reading Time Taken Comments Blood Pressure 124/76 06/05/2019 9:43 AM STERILIZATION TECHNICIAN Pulse 98 06/05/2019 9:43 AM STERILIZATION TECHNICIAN Temperature 37.3 C (99.2 F) 06/05/2019 9:43 AM STERILIZATION TECHNICIAN Respiratory Rate 16 06/05/2019 9:43 AM STERILIZATION TECHNICIAN Oxygen Saturation 97% 06/05/2019 9:43 AM STERILIZATION TECHNICIAN Inhaled Oxygen Concentration - - Weight 113.4 kg (250 lb) 06/05/2019 9:43 AM STERILIZATION TECHNICIAN Height 167.6 cm (5' 6 ) 06/05/2019 9:43 AM STERILIZATION TECHNICIAN Body Mass Index 40.35 06/05/2019 9:43 AM STERILIZATION TECHNICIAN Plan of Treatment Health Maintenance Due Date Last Done Comments COLOGUARD (AGES 45-75) - COL ON CA SCREENING 1970 COLON MONITORING 1970 COLONOSCOPY - COLON CA SCREENING 1970 CT COLONOGRAPHY - COLON CA SCREENING 1970 Colorectal Cancer Screening 1970 FIT - COLON CA SCREENING 1970 FLEX SIG - COLON CA SCREENING 1970 LIPID TESTING 1970 MAMMOGRAM 1970 PAP SMEAR 1970 HIV SCREENING 1985 HEPATITIS C SCREENING 12/12/1988 DTAP/TDAP/TD VACCINES (1 - Tdap) 1989 HEPATITIS B VACCINE (1 of 3 - 19+ 3-dose series) 1989 SCREENING FOR DIABETES 06/05/2019 PNEUMOCOCCAL VACCINE 50+ (1 of 1 - PCV) 2020 ZOSTER VACCINE (1 of 2) 2020 COVID-19 VACCINE (1 - 2023-2 5 season) 2024 INFLUENZA VACCINE (#1) 2024 DEPRESSION SCREENING 05/03/2024 HIB VACCINE Aged Out No longer eligi ble based on patient's age to complete this topic HPV VACCINE Aged Out No longer eligi ble based on patient's age to complete this topic MENINGOCOCCAL (Group B) VACCINE Aged Out No longer eligible based on patient's age to complete this topic MENINGOCOCCAL VACCINE Aged Out No altagracia maury eligible based on patient's age to complete this topic PNEUMOCOCCAL VACCINE Aged Out No long er eligible based on patient's age to complete this topic Margaret Kae Personal/Family Self 1970 ([place]) [address] [place] [address]
--- OUTSIDE RECORDS SUMMARY | 2024-06-25 11:19 | XMS_ITS | Clinical Summary ---
Author Organization [facility] Address [address] [place] [address] Care Team Providers Care Prototype Special Build Name Role Phone Freddy Durham MD Primary Care Provider Allergies Active Allergy Reactions Criticality Noted Date Comments Amoxicillin Itching Low 07/06/2018 Medications triamcinolone (KENALOG) 0.5 % cream Apply 1 application topically as needed. Active clobetasoL (TEMOVATE) 0.05 % cream APPLY BID PRN TO AFFECTED AREA. 9 Active albuterol HFA (PROVENTIL HFA,VENTOLIN HFA,PROAIR HFA) 90 mcg/actuation inhaler INL 2 INHALATIONS PO ITL Q 4 H PRF SOB OR WHZ OR COUGH 0 Active levoFLOXacin (LEVAQUIN) 750 mg tablet Take 1 tablet (750 mg total) by mouth daily 1 Active cholestyramine (QUESTRAN) 4 gram powder 3 Active ergocalciferol (VITAMIN D) 50,000 unit capsule Take 1 capsule (50,000 Units total) by mouth 3 Active Active Problems Problem Noted Date Diagnosed Date Mass of left breast 12/04/2022 Family history of breast cancer 10/10/2019 Breast cyst, left 06/22/2018 Overview (06/22/2018): Added automatically from request for surgery [id number] History of breast cancer 06/22/2018 Overview (06/22/2018): Added automatically from request for surgery [id number] Hx of breast reconstruction 06/22/2018 Overview (06/22/2018): Added automatically from request for surgery [id number] Primary osteoarthritis of fi rst carpometacarpal joint of left hand 03/22/2018 Overview (03/22/2018): Added automatically from request for surgery [id number] Arthritis of carpometacarpal (CMC) joint of left thumb 02/10/2018 Surgical History Surgery Date Site/Laterality Comments TONSILLECTOMY AND ADENOIDECTOMY ABLATION uterine ABDOMINAL SURGERY COSMETIC SURGERY EYE SURGERY JOINT REPLACEMENT SKIN BIOPSY MASTECTOMY 11/13/2015 Bilateral BREAST SURGERY BREAST RECONSTRUCTION 11/13/2015, 04/24/2016 THUMB SURGERY 03/23/2018 Medical History Medical History Date Comments Gestational diabetes Cancer (CMS/HCC) (HCC) 2014 bilateral breast--TX with mastectomy only Obesity BMI - 41 Sleep apnea PONV (postoperative nausea and vomiting) Breast cyst left breast infl ammed cyst Family History Medical History Relation Name Comments Hypertension Father Family history of hypertension - (Added by TW Conv) Cancer Mother Family history of malignant neoplasm - (Added by TW Conv) Gout Mother Family history of gout - (Added by TW Conv) PONV Mother Relation Name Status Comments Father Mother Social History Tobacco Use Types Packs/Day Years Used Date Smoking Tobacco: Never Smokeless Tobacco: Never Alcohol Use Standard Drinks/Week Comments No 0 (1 standard drink = 0.6 oz pur e alcohol) Comments No Sex and Gender Information Value Date Recorded Sex Assigned at Not on file Legal Sex Female 8:58 AM DAYCARE PROVIDER Gender Identity Not on file Sexual Orientation Not on file Obstetrics History Last Filed Vital Signs Vital Sign Reading Time Taken Comments Blood Pressure 147/82 04/04/2021 8:08 AM DAYCARE PROVIDER Pulse 105 04/04/2021 8:08 AM DAYCARE PROVIDER Temperature 36.6 C (97.8 F) 04/04/2021 8:08 AM DAYCARE PROVIDER Respiratory Rate 16 06/28/2018 8:25 AM DAYCARE PROVIDER Oxygen Saturation 100% 06/28/2018 8:25 AM DAYCARE PROVIDER Inhaled Oxygen Concentration - - Weight 111.6 kg (246 lb 0.5 oz) 01/14/2024 3:28 PM CDT Height 167.6 cm (5' 5.98 ) 01/14/2024 3:28 PM CD T Body Mass Index 39.73 01/14/2024 3:28 PM CDT Plan of Treatment Health Maintenance Due Date Last Done Comments Breast Cancer Screening-Mammogram 1970 Cervical Cancer Screening 1970 Colon Cancer Screening-Colonoscopy 1970 Depression Screening 1970 Hepatitis C Screening 1970 DTaP/Tdap/Td Vaccine (1 - Tdap) 1981 Hepatitis B Screening 1988 Regular Well Visit/Exam 18-64 1988 Zoster Vaccine (1 of 2) 2020 Influenza Vaccine (#1) 2024 9, 01/30/2017, 02/01/2016, Additional history exists Pneumococcal vaccine <65 Aged Out No longer eligible based on patient's age to complete this topic Medical Devices Implanted Type Area Restuarant Crew Worker Device Identifier Shelf Expiration Date Model / Serial / Lot Breast Implants Breast [employer] A-4655.62 1.3mm 4x2 Hole T Locking Grid Trapezoid Right Plate Bone 2mm 2.3 - [id number] Implanted:Qty: 1 on 03/23/2018 by Long Garvin MD at [facility] Left: Thumb [employer] A-4655.62 / / [employer] A-5450.16/1 Aptus Trilock 2mm 16mm Hexadrive 6 Midfoot Screw Bone Titanium - [id number] Implanted:Qty: 2 on 03/23/2018 by Long Garvin MD at [facility] Left: Thumb [employer] A-5450.16/1 / / [employer] A-5450.14 Aptus 2mm 14mm Lock Hand Cortical 6mm Head Screw Bone Titanium - [id number] Implanted:Qty: 1 on 03/23/2018 by Long Garvin MD at [facility] Left: Thumb [employer] A-5450.14 / / [employer] A-5400.11 Aptus 2mm 11mm 2 Threaded Hexadrive 6 Self Tapping Tapered Core - [id number] Implanted:Qty: 1 on 03/23/2018 by Long Garvin MD at [facility] Left: Thumb [employer] A-5400.11 / / [employer] A-5450.10 Aptus 2mm 10mm 2 Threaded Locking Hexadrive 6 Atraumatic Tip - [id number] Implanted:Qty: 1 on 03/23/2018 by Long Garvin MD at [facility] Left: Thumb [employer] A-5450.10 / / [employer] A-5400.13/1 Aptus 2mm 13mm 2 Thread Hexadrive 6 Self Tap Atraumatic Tip - [id number] Implanted:Qty: 1 on 03/23/2018 by Long Garvin MD at [facility] Left: Thumb [employer] A-5400.13/1 / / [employer] A-5400.18 2mm 18mm Cortical 6mm Head Screw Bone - [id number] Implanted:Qty: 1 on 03/23/2018 by Long Garvin MD at [facility] Left: Thumb [employer] A-5400.18 / / Insurance MERGED WITH [facility] CLAIMS MERGED WITH [facility] Advance Directives For more information, please contact: [phone] * Full Code (Latest Code Status on File) Date Activated Date Inactivated Comments 06/20/2018 2:53 PM 06/22/2018 3:27 PM * Full Code Date Activated Date Inactivated Comments 03/23/2018 5:09 PM 03/23/2018 7:56 PM Care Teams Prototype Special Build Relationship Specialty Start Date End Date Freddy Durham MD [address] [facility] [address] [place] [address] PCP - General 09/08/16
--- OUTSIDE RECORDS SUMMARY | 2024-06-25 11:19 | XMS_ITS | Referral Summary ---
Author Organization [facility] Address [address] [place] [address] Care Team Providers Care Bander Name Role Phone Freddy Duhram MD Primary Care Provider Allergies Active Allergy [...] (06/22/2018): Added automatically from request for surgery [id number] History of breast cancer 06/22/2018 Overview (06/22/2018): Added automatically from request for surgery [id number] Hx of breast reconstruction 06/22/2018 Overview (06/22/2018): Added automatically from request for surgery [id number] Primary osteoarthritis of fi rst carpometacarpal joint of left hand 03/22/2018 Overview (03/22/2018): Added automatically from request for surgery [id number] Arthritis of carpometacarpal (CMC) joint of left thumb 02/10/2018 Social History Tobacco Use Types Packs/Day Years Used Date Smoking Tobacco: Never Smokeless Tobacco: Never Alcohol Use Standard Drinks/Week Comments No 0 (1 standard drink = 0.6 oz pur e alcohol) Comments No Sex and Gender Information Value Date Recorded Sex Assigned at Not on file Legal Sex Female 8:58 AM CLEAN UP WORKER Gender Identity Not on file Sexual Orientation Not on file Last Filed Vital Signs Vital Sign Reading Time Taken Comments Blood Pressure 147/82 04/04/2021 8:08 AM CLEAN UP WORKER Pulse 105 04/04/2021 8:08 AM CLEAN UP WORKER Temperature 36.6 C (97.8 F) 04/04/2021 8:08 AM CLEAN UP WORKER Respiratory Rate 16 06/28/2018 8:25 AM CLEAN UP WORKER Oxygen Saturation 100% 06/28/2018 8:25 AM CLEAN UP WORKER Inhaled Oxygen Concentration - - Weight 111.6 kg (246 lb 0.5 oz) 01/14/2024 3:28 PM CDT Height 167.6 cm (5' 5.98 ) 01/14/2024 3:28 PM CD T Body Mass Index 39.73 01/14/2024 3:28 PM CDT Plan of Treatment Not on file Medical Devices Implanted Type Area Surg Nurse Device Identifier Shelf Expiration Date Model / Serial / Lot Breast Implants Breast [employer] A-4655.62 1.3mm 4x2 Hole T Locking Grid Trapezoid Right Plate Bone 2mm 2.3 - [id number] Implanted:Qty: 1 on 03/23/2018 by Long Garvin MD at [facility] Left: Thumb [employer] A-4655.62 / / [employer] A-5450.16/1 Aptus Trilock 2mm 16mm Hexadrive 6 Midfoot Screw Bone Titanium - [id number] Implanted:Qty: 2 on 03/23/2018 by Long Garvin MD at [facility] [place] Left: Thumb [employer] A-5450.16/1 / / [employer] A-5450.14 Aptus 2mm 14mm Lock Hand Cortical 6mm Head Screw Bone Titanium - [id number] Implanted:Qty: 1 on 03/23/2018 by Long Garvin MD at [facility] [place] Left: Thumb [employer] A-5450.14 / / [employer] A-5400.11 Aptus 2mm 11mm 2 Threaded Hexadrive 6 Self Tapping Tapered Core - [id number] Implanted:Qty: 1 on 03/23/2018 by Long Garvin MD at [facility] Left: Thumb [employer] A-5400.11 / / [employer] A-5450.10 Aptus 2mm 10mm 2 Threaded Locking Hexadrive 6 Atraumatic Tip - [id number] Implanted:Qty: 1 on 03/23/2018 by Long Garvin MD at [facility] [place] Left: Thumb [employer] A-5450.10 / / [employer] A-5400.13/1 Aptus 2mm 13mm 2 Thread Hexadrive 6 Self Tap Atraumatic Tip - [id number] Implanted:Qty: 1 on 03/23/2018 by Long Garvin MD at [facility] [place] Left: Thumb [employer] A-5400.13/1 / / [employer] A-5400.18 2mm 18mm Cortical 6mm Head Screw Bone - [id number] Implanted:Qty: 1 on 03/23/2018 by Long Garvin MD at [facility] [place] Left: Thumb [employer] A-5400.18 / / Insurance [facility] Advance Directives For more information, please contact: [phone] * Full Code (Latest Code Status on File) Date Activated Date Inactivated Comments 06/20/2018 2:53 PM 06/22/2018 3:27 PM * Full Code Date Activated Date Inactivated Comments 03/23/2018 5:09 PM 03/23/2018 7:56 PM Care Teams Bander Relationship Specialty Start Date End Date Freddy Durham MD [address] [place] [address] PCP - General 09/08/16
--- OUTSIDE RECORDS SUMMARY | 2024-06-25 11:19 | XMS_ITS | Referral Summary ---
Author Organization [facility] Address [address] [place] [address] Care Team Providers Care Regulatory Intern Name Role Phone Unavailable Primary Care Provider Unavailabl e Source Comments [facility],non-owned Affiliates and Associated Physician Practices is amultiple site organization consisting of ambulatory clinics and hospital sitesin [place], [place], [place] and [place]. This disclosure is being madepursuant to the Care Everywhere program and may not contain all information available regarding this patient. Last updated 18.[facility] Allergies Active Allergy Reactions Criticality Noted Date [...] Comments Blood Pressure 124/76 06/05/2019 9:43 AM PHYSICAL CHEMIST Pulse 98 06/05/2019 9:43 AM PHYSICAL CHEMIST Temperature 37.3 C (99.2 F) 06/05/2019 9:43 AM PHYSICAL CHEMIST Respiratory Rate 16 06/05/2019 9:43 AM PHYSICAL CHEMIST Oxygen Saturation 97% 06/05/2019 9:43 AM PHYSICAL CHEMIST Inhaled Oxygen Concentration - - Weight 113.4 kg (250 lb) 06/05/2019 9:43 AM PHYSICAL CHEMIST Height 167.6 cm (5' 6 ) 06/05/2019 9:43 AM PHYSICAL CHEMIST Body Mass Index 40.35 06/05/2019 9:43 AM PHYSICAL CHEMIST Plan of Treatment Not on file Kae Robles Personal/Family Self [address] [place] [address]
--- OUTSIDE RECORDS SUMMARY | 2024-06-25 11:19 | XMS_ITS | Patient Health Summary ---
Author Organization [facility] [employer] Address [address] [place] [address] Care Team Providers Care Chemist Physical Name Role Phone Unavailable Primary Care Provider Unavailabl e Note from [facility],non-owned Affiliates and Associated Physician Practices is amultiple site organization consisting of ambulatory clinics and hospital sitesin [place], [place], [place] and [place]. This disclosure is being madepursuant to the Care Everywhere program and may not contain all information available regarding this patient. Last updated 18.[facility] [employer] Allergies * Amoxicillin(Itching) Medications Be aware that medications may not [...] Comments Blood Pressure 124/76 06/05/2019 9:43 AM INFORMATION CLERK [employer] Pulse 98 06/05/2019 9:43 AM INFORMATION CLERK [employer] Temperature 37.3 C (99.2 F) 06/05/2019 9:43 AM INFORMATION CLERK [employer] Respiratory Rate 16 06/05/2019 9:43 AM INFORMATION CLERK [employer] Oxygen Saturation 97% 06/05/2019 9:43 AM INFORMATION CLERK [employer] Inhaled Oxygen Concentration - - Weight 113.4 kg (250 lb) 06/05/2019 9:43 AM INFORMATION CLERK [employer] Height 167.6 cm (5' 6 ) 06/05/2019 9:43 AM INFORMATION CLERK [employer] Body Mass Index 40.35 06/05/2019 9:43 AM INFORMATION CLERK [employer] Procedures * STREP A SCREEN - POINT OF CARE (AMB) STL(Performed 06/05/2019) Performed for Nasopharyngitis acute * INFLUENZA A+B - POINT OF CARE (AMB)(Performed 06/05/2019) Performed for Nasopharyngitis acute * STREP A SCREEN - POINT OF CARE (AMB) STL(Performed 08/04/2017) Performed for Acute nasopharyngitis Results * STREP A SCREEN - POINT OF CARE (AMB) STL (06/05/2019 9:48 AM INFORMATION CLERK [employer]) Only the most recent of2 resultswithin the time period is included. Strep A Rapid POCT Negative Negative Strep A Internal Control Present Lot # [id number] Expiration Date 09 30 2020 Throat ENTIRE THROAT (SURFACE REGION OF NECK) / Unknown 06/05/2019 9:48 AM INFORMATION CLERK [employer] Alberto Deleon APRN-[facility] RE ORDERABLES * INFLUENZA A+B - POINT OF CARE (AMB) (06/05/2019 9:48 AM INFORMATION CLERK [employer]) Influenza A Antigen Rapid Negative Negative Influenza B Antigen Rapid Negative Negative Influenza Internal Control present NEGATIVE - POSITIVE Influenza Lot Number [id number] Influenza Expiration Date 02 14 2021 Other NASOPHARYNGEAL SWAB / Unknown 06/05/2019 9:48 AM INFORMATION CLERK [employer] Alberto Deleon APRN-[facility] [place] RE ORDERABLES
--- OUTSIDE RECORDS SUMMARY | 2024-06-25 11:19 | XMS_ITS | Continuity of Care Document ---
Author Name [facility] Organization [facility] Care Team Providers Care Field Sales Manager Name Role Phone [facility] Unavailable Unavailable Medications Combined list of outpatient medications from Department of Defense and Veterans Affairs facilities.Medications provided include 1) outpatient medications from the last 15 months, and 2) patient-reported medications. Medication Details Route Status Patient Instructions Prescription Expires Prescription Number Last Dispense Date Ordering Provider Order Date Order Qty Source NEOMYCIN-PO LYMYXIN-HC (neomycin sulfate/jacqueline ymyxin B sulfate/hyd rocortisone ), 3.5-10K-1, DROPS SUSP, OTIC (EAR), SANDOZ, 10 ml DROP BTL Active [id number] 10/07/19 2 4 2023 10 Pharmac y Data Transac tion Service Facilit y Allergies, Adverse Reactions, Alerts Combined list of allergies from Department of Defense and Veterans Affairs facilities. It does not include entries that were removed or entered in error. Substance Category Reaction Severity Reaction type Status Date Reported Comments Source No Known Allergies Drug allergy (disorder) active [address] [place] [address] [place] NO KNOWN ALLERGIES Propensity to adverse reactions to drug Active Unknown Organization Immunizations Combined list of available immunizations from the Department of Defense and Veterans Affairs facilities. Immunization Series Date Given Administered By Site Reaction Lot Number CVX Code Drug Talent Scout Status Comments Source COVID-19, mRNA, LNP-S, PF, 100 mcg or 50 mcg dose 2021 CASPER, Moderna [employer] (MOD) Not Given COVID-19, mRNA, LNP-S, PF, 100 mcg or 50 mcg dose DoD COVID-19, mRNA, LNP-S, PF, 30 mcg/0.3 mL dose 2021 ALUL, () Not Given COVID-19, mRNA, LNP-S, PF, 30 mcg/0.3 mL dose DoD zoster recombinant 2020 ALUL, () Not Given zoster recombina nt DoD influenza, injectable, quadrivalent, preservative free 2020 TREMAYNE, () Not Given influenza , injectabl e, quadrival ent, preservat bonny free DoD zoster recombinant 2020 TREMAYNE, () Not Given zoster recombina nt DoD influenza, injectable, quadrivalent, preservative free 2019 ALUL, () Not Given influenza , injectabl e, quadrival ent, preservat bonny free DoD Tdap 2019 ALUL, () Not Given Tdap DoD influenza, injectable, quadrivalent, preservative free 2018 ALUL, () Not Given influenza , injectabl e, quadrival ent, preservat bonny free DoD Influenza, seasonal, injectable 2016 ALUL, () Not Given Influenza , seasonal, injectabl e DoD influenza, injectable, quadrivalent, preservative free 2015 ALUL, () Not Given influenza , injectabl e, quadrival ent, preservat bonny free DoD influenza, injectable, quadrivalent- pf 2014 150 sanofi pasteur complet ed influenza , injectabl e, quadrival ent-pf 02/10/15 Given Ambulat ory Pharmac y Influenza, seasonal, injectable, preservative free 2013 ALUL, RUSHDI DO () Not Given Influenza , seasonal, injectabl e, preservat bonny free DoD influenza virus vaccine,split 2002 TRANSCR IBED 15 complet ed influenza virus vaccine,s plit 02/09/03 Given Ambulat ory Pharmac y influenza virus vaccine, split virus (incl. purified surface antigen)-reti red CODE 1 2002 Unknown, Provider 15 Transcribed (TRS) complet ed influenza virus vaccine, split virus (incl. purified surface antigen)- retired CODE DoD Encounters Combined list of: 1) Encounters from Department of Veterans Affairs facilities going backup to the last 18 months, not all VA inpatient encounters are included; 2) Encounters from the Department of Defense facilities going backup to 280 months. Location Location Details Encounter Type Encounter Number Reason For Visit Attending Provider ADM Date DC Date Status Disposition Source [facility] Christiano LOZA [place]Truck Terminal Manager ecology) TELE CONSULT [id number] Notes Entered by: LITO BARBER 17 Sep 2015 1353 ------- ------- ------- ------- -- Appt against CHUY Rangel 09/[address] [place] [address])(G ynecolo gy) [address] [place] [address])(Truck Terminal Manager ecology) OUTPATIENT [id number] diagnos is of Liche - being [place]iv[place] d [place] [id number] MILAGRO LIM 09/23 Released w/o Limitations [address] [place] [address])(G ynecolo gy) [address] [place] [address])(Truck Terminal Manager ecology) TELE CONSULT [id number] Notes Entered by: VIRIDIANA MCWILLIAMS 10 Oct 2015 1023 ------- ------- ------- ------- -- Scanned Women's Health Records into [facility] MILAGRO LIM 10/[address] [place] [address])(G ynecolo gy) [address] [place] [address])(Truck Terminal Manager ecology) OUTPATIENT [id number] vulvar biopsy - [phone] MILAGRO LIM 10/16 Released w/o Limitations [address] [place] [address])(G ynecolo gy) [address] [place] [address])(Truck Terminal Manager ecology) TELE CONSULT [id number] Notes Entered by: DIAN LIM 28 Oct 2015 1648 ------- ------- ------- ------- -- results CHET CRAFT 10/[address] [place] [address])(G ynecolo gy) Procedures Combined list of: 1) Procedures from Department of Veterans Affairs facilities going back up to thelast 18 months, not all VA non-surgical procedures are included; 2) All procedures from the Department of Defense facilities. Procedure Procedure Type Code Date Perfomer Comments Sourc e No data available for this section Ambulatory Pharmacy Biopsy Vulvar Biopsy Vulvar [id number] 10/17/2015 MILAGRO LIM [facility] Non-Physician Phone Call To Patient/Provide r Brief (5-10min) Non-Physician Phone Call To Patient/Provide r Brief (5-10min) [id number] 09/20/2015 CHUY STAUFFER [facility] BIOPSY OF VULVA OR PERINEUM (SEPARATE PROCEDURE); 1 LESION 10/17/2015 [facility] TELE ASSESS & MGT SRV PROV QUAL NONPHYS HLTH CARE PRO TO EST PAT,PARENT,GUAR D NOT ORIG REL ASSESS & MGT SRV PROV W/IN PREV 7 DAYS NOR LEAD ASSESS & MGT SRV/PX W/IN NXT 24 HR/SOON APT;5-10 MIN MED DIS 09/17/2015 DoD Social History Combined list of available smoking, tobacco, and other social history from Department of Defense and Veterans Affairs facilities. Social History Type Response Date Comment Sour e This section is an empty social history section. DoD Assessment and Plan Combined list of future care activities from Department of Defense and Veterans Affairs facilities (e.g., assessment and plan notes, appointments, orders, and referrals). Additional future care activities may be listed in the Plan of Care section. Result Assessment and Plan Date Source Assessment and Plan No data available for this section 06/25/2024 Ambulatory Pharmacy Functional Status Combined list of recent functional and cognitive assessments recorded at Department of Defense and Veterans Affairs (VA).VA Functional [place]enton Measurement (FIM) Scale: 1 = Total Assistance (Subject = 0% +), 2 = Maximal Assistance (Subject = 25% +), 3 = Moderate Assistance (Subject = 50% +), 4 = Minimal Assistance (Subject = 75% +), 5 = Supervision, 6 = Modified Denton (Device), 7 = Complete [place]enton (Timely, Safely). Assessment Date/Time Source Assessment Type Assessment Skill Assessment Score Assessment Details No data available for this section
--- OUTSIDE RECORDS SUMMARY | 2024-06-25 11:19 | XMS_ITS | Continuity of Care Document ---
Author Organization [facility] Address [address] [place] [address] Phone Care Team Providers Care Music Autographer Name Role Phone Tico MS, OTR/L, Jillian PRINCE Unavailable Unavailable Procedures Procedure Date Therapeutic Exercise Manual Therapy Hot or Cold Pack Therapeutic Exercise Manual Therapy Hot or Cold Pack Therapeutic Exercise Therapeutic Activities Hot or Cold Pack OT Evaluation Moderate Complexity Therapeutic Exercise Manual Therapy Hot or Cold Pack Advance Directives Directive Yes / No Effective Date File Name No Information Encounters Encounter Description Practice Location Reason(s) For Visit Diagnoses Date Provider Providers Copied on Encounter [facility], [address] [place] [address], [id number], tel:[phone] [place] No Information 9 Tico Walsh. [address] [facility], [facility] [address], [place], [facility], [place]. tel:[phone] [facility], [address] [facility] [address], [place], [place], [id number], tel:[phone] [place] Pain in left finger(s)Pain in left wristOth symptoms and signs involving the musculoskeletal systemOther general symptoms and signs Jan- 8 Tico Walsh. [address] [facility], [facility] [address], [place], [place], [facility], [place]. tel:[phone] Referring Provider: Freddy Durham [address] [place] [address] [address] [place] [address], [facility]. tel:[phone], [id number], tel:[phone] [place] Pain in left finger(s)Pain in left wristOth symptoms and signs involving the musculoskeletal systemOther general symptoms and signs Sep-1 9-201 8 Tico Walsh. [address] [place] [address], [facility] [address], [place], [facility], [place]. tel:[phone] Referring Provider: Freddy Durham [address] [place] [address], [facility]. tel:[phone], [id number], tel:[phone] [place] Pain in left finger(s)Pain in left wristOth symptoms and signs involving the musculoskeletal systemOther general symptoms and signs Sep-1 7-201 8 Tico Walsh. [address] [place] [address], [facility] [address], [place], [facility], [place]. tel:[phone] Referring Provider: Freddy Durham [address] [place] [address] 162 [facility] [address], [place], [facility]. tel:[phone], [id number], tel:[phone] [place] Pain in left finger(s)Pain in left wristOth symptoms and signs involving the musculoskeletal systemOther general symptoms and signs Sep-1 2-201 8 Tico Walsh. [address] [place] [address], [facility] [address], [place], [facility], [place]. tel:[phone] Referring Provider: Freddy Durham [address] [place] [address] 162 [facility] [address], [place], [facility]. tel:[phone] Family History Family Member Type Diagnosis Age At Onset No Information Payers Payer name Insurance type Covered constitution party ID Authoriza tion(s) No Information Social History Type Description Quantity Date Captured Comments Sex Female Smoking Status No Information Chief Complaint And Reason For Visit No Information Reason For Referral Reason For Referral No Information History Of Present Illness Encounter Date Complaint History Of Prese nt Illness No Information Functional Status Date Functional Assessmen t No Information Instructions Date Instruction Additional Infor mation No Information Assessments Type Assessment Date No Information Patient Care Teams Name Effective Dates (start - stop) Status Members No Information
--- OUTSIDE RECORDS SUMMARY | 2024-06-25 11:22 | XMS_ITS | Continuity of Care Document ---
Author Organization [facility] Address [address] [place] [address] Phone Care Team Providers Care Billing Auditor Name Role Phone Tico MS, OTR/L, Jillian [...] Diagnoses Date Provider Providers Copied on Encounter [facility], [address] [place] [address], [id number], tel:[phone] [place] No Information [address] [facility], [facility] [address], [place], [facility], [place]. tel:[phone] [facility], [address] [facility] [address], [place], [place], [id number], tel:[phone] [place] Pain in left finger(s)Pain in left wristOth symptoms and signs involving the musculoskeletal systemOther general symptoms and signs Jan- [address] [facility], [facility] [address], [place], [place], [facility], [place]. tel:[phone] Referring Provider: Freddy Durham [address] [place] [address] [place] [address], [facility]. tel:[phone], [id number], tel:[phone] [place] Pain in left finger(s)Pain in left wristOth symptoms and signs involving the musculoskeletal systemOther general symptoms and signs Sep-1 9-201 8 Tico Walsh. [address] [place] [address], [facility] [address], [place], [facility], [place]. tel:[phone] Referring Provider: Freddy Durham [address] [place] [address], [facility]. tel:[phone], [id number], tel:[phone] [place] Pain in left finger(s)Pain in left wristOth symptoms and signs involving the musculoskeletal systemOther general symptoms and signs Sep-1 7-201 8 Tico Walsh. [address] [place] [address], [facility] [address], [place], [facility], [place]. tel:[phone] Referring Provider: Freddy Durham [address] [place] [address] 162 [facility] [address], [place], [facility]. tel:[phone], [id number], tel:[phone] [place] Pain in left finger(s)Pain in left wristOth symptoms and signs involving the musculoskeletal systemOther general symptoms and signs Sep-1 2-201 8 Tico Walsh. [address] [place] [address], [facility] [address], [place], [facility], [place]. tel:[phone] Referring Provider: Freddy Durham [address] [place] [address] 162 [facility] [address], [place], [facility]. tel:[phone] Family History Family Member Type Diagnosis Age At Onset No Information Payers Payer name Insurance type Covered libertarian ID Authoriza tion(s) No Information Social History [...]
--- OUTSIDE RECORDS SUMMARY | 2024-06-25 11:22 | XMS_ITS | Continuity of Care Document ---
Author Name [facility] Organization [facility] Care Team Providers Care Quality Improvement Consultant Name Role Phone [facility] Unavailable Unavailable Medications Combined list of outpatient [...] (EAR), SANDOZ, 10 ml DROP BTL Active [id number] 10/07/19 2 4 2023 10 Pharmac y Data Transac tion Service Facilit y Allergies, Adverse Reactions, Alerts Combined list of allergies from Department of Defense and Veterans Affairs facilities. It does not include entries that were removed or entered in error. Substance Category Reaction Severity Reaction type Status Date Reported Comments Source No Known Allergies Drug allergy (disorder) active [address] [place] [address] ([facility]) NO KNOWN ALLERGIES Propensity to adverse reactions to drug Active Unknown Organization Immunizations Combined list of available immunizations from the Department of Defense and Veterans Affairs facilities. Immunization Series Date Given Administered By Site Reaction Lot Number CVX Code Drug Grass Farmer Status Comments Source COVID-19, mRNA, LNP-S, PF, 100 mcg or 50 mcg dose 2021 CASPER, [employer] (MOD) Not Given COVID-19, mRNA, LNP-S, [...] ADM Date DC Date Status Disposition Source [facility] Christiano LOZA ([facility])(Marketing Database Coordinator ecology) TELE CONSULT [id number] Notes Entered by: LITO BARBER 17 Sep 2015 1353 ------- ------- ------- ------- -- Appt against CHUY Rangel 09/[address] [place] [address])(G ynecolo gy) [address] [place] [address])(Marketing Database Coordinator ecology) OUTPATIENT [id number] diagnos is of [place] - being [place] d [place] [id number] MILAGRO LIM 09/23 Released w/o Limitations [address] [place] [address])(G ynecolo gy) [address] [place] [address])(Marketing Database Coordinator ecology) TELE CONSULT [id number] Notes Entered by: VIRIDIANA MCWILLIAMS 10 Oct 2015 1023 ------- ------- ------- ------- -- Scanned Women's Health Records into [facility] MILAGRO LIM 10/[address] [place] [address])(G ynecolo gy) [address] [place] [address])(Marketing Database Coordinator ecology) OUTPATIENT [id number] vulvar biopsy - [phone] MILAGRO LIM 10/16 Released w/o Limitations [address] [place] [address])(G ynecolo gy) [address] [place] [address])(Marketing Database Coordinator ecology) TELE CONSULT [id number] Notes Entered by: DIAN LIM 28 Oct 2015 1648 ------- ------- ------- ------- -- results CHET CRAFT 10/[address] [place] [address])(G ynecolo gy) Procedures Combined list of: 1) Procedures from Department of Veterans Affairs facilities going back up to thelast 18 months, not all VA non-surgical procedures are included; 2) All procedures from the Department of Defense facilities. Procedure Procedure Type Code Date Perfomer Comments Sourc e No data available for this section Ambulatory Pharmacy Biopsy Vulvar Biopsy Vulvar [id number] 10/17/2015 MILAGRO LIM [facility] Non-Physician Phone Call To Patient/Provide r Brief (5-10min) Non-Physician Phone Call To Patient/Provide r Brief (5-10min) [id number] 09/20/2015 CHUY STAUFFER [facility] BIOPSY OF VULVA OR PERINEUM (SEPARATE PROCEDURE); 1 LESION 10/17/2015 [facility] TELE ASSESS & MGT SRV PROV [...] of Defense and Veterans Affairs (VA).VA Functional Holmes Measurement (FIM) Scale: 1 = Total Assistance (Subject = 0% +), 2 = Maximal Assistance (Subject = 25% +), 3 = Moderate Assistance (Subject = 50% +), 4 = Minimal Assistance (Subject = 75% +), 5 = Supervision, 6 = Modified Holmes (Device), 7 = Complete Holmes (Timely, Safely). Assessment Date/Time Source Assessment Type Assessment Skill Assessment Score Assessment Details No data available for this section
[2024-06-25 11:50] VITALS: BP 127/82; PULSE 118; RESP 19; TEMP 36.9; O2SAT 97
--- NOTE | 2024-06-25 12:21 | ED_ITS ---
HPI - URI/Sore Throat General Chief Complaint: Upper Respiratory Infection Stated Complaint: flu like symptoms Source: patient and RN notes reviewed Mode of arrival: ambulatory Limitations: no limitations History of Present Illness HPI Narrative: 53 y/o female presented for c/o painful cough, headache, body aches, sinus pressure/congestion,fever/chills. Onset yesterday. Denies sob, wheezing, n/v/d. Alternating Tylenol and ibuprofen. MD elicited complaint: cough Related Data Home Medications ?Medication ?Instructions ?Recorded ?Confirmed ?Last Taken ?Type ergocalciferol (vitamin D2) 1,250 1,250 mcg PO WEEKLY 11/04/22 03/21/24 Unknown History mcg (50,000 unit) capsule Allergies Allergy/AdvReac Type Severity Reaction Status Date / Time amoxicillin AdvReac Mild Itching Verified 06/25/24 12:05 Review of Systems Review of Systems: per HPI [facility] Past Medical History Medical History Chronic cough Colon cancer screening Cough Eruptive xanthoma GERD (gastroesophageal reflux disease) H/O malignant neoplasm of breast Obesity ZACK (obstructive sleep apnea) Surgical History Surgical History H/O thumb surgery PIN IN [place]UM[place]. [facility] Hx laparoscopic cholecystectomy 04/16/21 Hx of tonsillectomy S/P bilateral mastectomy Family History Family History Father Hypertension Mother Family history of malignant neoplasm of breast in first degree relative Social History Social History Smoking status: Never smoker Second hand tobacco smoke exposure: No Alcohol intake: current Alcohol use details: RARELY <1/WEEK Substance use: never Substance use type: does not use Living arrangements: with family Occupation/Education: occupation Gender identity (if verbalized by the patient): Female Spiritual care concerns: No Exam Narrative: GENERAL: Ill-appearin HEAD: Normocephalic EYES: PERRLA, conjunctivae clear ENT: Mucous membranes moist. TM pearly flores with dull light reflex bilaterally; no tragal tenderness. Oropharynx erythematous without lesions or exudate, no drooling, no hoarseness, no trismus, uvula midline. No tripod positioning, muffled voice, soft palate or pharyngeal wall bulging CHEST: Clear to auscultation, breath sounds equal. Frequent harsh embroidery specialist cough; no wheezing, rhonchi, rales, or stridor. No respiratory distress, speaks in full sentences. HEART: Regular rate and rhythm. No murmur heard. SKIN: Warm, dry, no rash. NEURO: Alert and oriented x3. PSYCH: Normal mood and affect Course Course Emergency Course: Patient is aware of diagnosis, understands and agrees to treatment plan. Anticipatory guidance given. Patient agrees to follow-up as directed and is aware of reasons to seek care at the emergency department. Portions of this record may have been created with voice recognition software Level of Care: Express Care Visit Vital Signs Vital signs: Vital Signs Temperature 98.4 F 06/25/24 11:50 Pulse Rate 118 H 06/25/24 11:50 Respiratory Rate 19 06/25/24 11:50 Blood Pressure 127/82 06/25/24 11:50 Pulse Oximetry 97 06/25/24 11:50 Oxygen Delivery Room Air 06/25/24 11:50 Temperature 98.4 F 06/25/24 11:50 Pulse Rate 118 H 06/25/24 11:50 Respiratory Rate 19 06/25/24 11:50 Blood Pressure 127/82 06/25/24 11:50 Pulse Oximetry 97 06/25/24 11:50 Oxygen Delivery Room Air 06/25/24 11:50 reviewed MDM - URI/Sore Throat MDM Narrative Medical decision making narrative: Negative flu and COVID. Discussed physical exam findings. Advised supportive measures and signs/symptoms to go to the ER. Pt is appropriate for outpt treatment and f/u. Differential Diagnosis Differential diagnosis: Likely upper respiratory infection, sinusitis, viral infection, bronchitis and influenza Discharge Plan Discharge Clinical Impression: Viral infection Patient Disposition: Home, Self-Care Condition: Stable Instructions: Acute Bronchitis (ED) Additional Instructions: You should avoid crowds until you are fever free for 24 hours without the use of fever reducing medications, or the symptoms are improved Rest. Drink plenty of fluids. Take steroid as directed Tylenol 1000mg every 8 hours as needed for pain/fever Flonase spray and Zyrtec (or Claritin/Praveena) for sinus pressure/congestion over the counter Cough syrup may cause drowsiness; avoid driving or take it at night time. Follow up with your primary care provider as needed Go to the ER for worsening symptoms or concerns Patient Language: Persian Prescriptions: New methylprednisolone [Medrol (Allan)] 4 mg tablets,dose pack See Rx Instructions .ROUTE .COMPLEX Qty: 21 0RF Rx Instructions: orally per package directions No Action ergocalciferol (vitamin D2) 1,250 mcg (50,000 unit) capsule 1,250 mcg PO WEEKLY cyclobenzaprine 10 mg tablet 10 mg PO TID PRN (Reason: muscle spasm) Qty: 30 0RF prednisone 10 mg tablet 10 mg PO DAILY Qty: 18 0RF Rx Instructions: Take 3 tabs x 3 days, then 2 tabs x 3 days, then 1 tab x 3 days Follow-up/Referrals: Freddy Durham MD [Primary Care Provider] - Time of Disposition: 12:29
[2024-06-25 12:26] LABS: EDCOVIDSCREEN Negative (Negative); EDINFLUASCREEN Negative (Negative); EDINFLUBSCREEN Negative (Negative)
== END 2024-06-25 12:31 | disposition home or self-care (01) ==
PROVIDERS: Emergency Provider Nurse Practitioner Family; PCP Family Medicine
DX: B34.9 Viral infection, unspecified (principal); Z20.822 Contact with and (suspected) exposure to COVID-19; K21.9 Gastro-esophageal reflux disease without esophagitis; E66.9 Obesity, unspecified; Z68.41 Body mass index [BMI] 40.0-44.9, adult; Z85.3 Personal history of malignant neoplasm of breast; Z90.13 Acquired absence of bilateral breasts and nipples
CPT/HCPCS: 87426; 87804; 99213; G0463

== ENCOUNTER 2024-06-30 12:00 | Outpatient (CLI) | payer OTHER, SELFPAY | END 2024-06-30 12:01 | disposition home or self-care (01) | PROVIDERS: PCP Family Medicine; Visit Provider Physician Assistant Medical | DX: R05.9 Cough, unspecified (principal) | CPT/HCPCS: 71046 ==

== ENCOUNTER 2024-10-16 13:14 | Outpatient (CLI) | payer OTHER, SELFPAY ==
[2024-10-16 14:04] LABS: Hematocrit 37.9 % (37.0-47.0); Hemoglobin 12.5 g/dL (12.0-15.0); Mean Corpuscular Hemoglobin 30.9 pg (26-34); Mean Corpuscular Volume 93.6 fl (80-100); Mean Platelet Volume 9.9 fl (7.4-10.4); Platelet Count Result 257 k/mm3 (150-375); Red Blood Count 4.05 M/mm3 (4.2-5.4); Red Cell Distribution Width 12.3 % (11.5-14.5); White Blood Count 4.3 K/mm3 (4.5-10.0)
[2024-10-16 14:10] LABS: Alanine Aminotransferase 28 U/L (6-35); Albumin Level 4.6 g/dL (3.5-5.1); Alkaline Phosphatase 54 U/L (38-126); Anion Gap 10 mmol/L (4-12); Aspartate Amino Transferase 32 U/L (14-36); Bilirubin,Total 0.6 mg/dL (0.2-1.3); Blood Urea Nitrogen 11 mg/dL (7-17); Calcium 9.2 mg/dL (8.4-10.2); Carbon Dioxide 25 mmol/L (22-30); Chloride 104 mmol/L (98-107); Cholesterol 180 mg/dL (0-200); Estimated Glomerular Filt Rate > 60; Glucose 91 mg/dL (65-110); HDL Direct 49 mg/dL; Potassium 4.1 mmol/L (3.4-5.0); Sodium 139 mmol/L (137-145); Total Protein 7.5 g/dL (6.3-8.2); Triglycerides 107 mg/dL (<150)
--- OUTSIDE RECORDS SUMMARY | 2024-10-16 14:10 | XMS_ITS | Clinical Summary ---
Author Organization [facility] Address [address] [place] [address] Care Team Providers Care Entertainment Lawyer Name Role Phone Freddy Durham MD Primary [...] (06/22/2018): Added automatically from request for surgery [id number] History of breast cancer 06/22/2018 Overview (06/22/2018): Added automatically from request for surgery [id number] Hx of breast reconstruction 06/22/2018 Overview (06/22/2018): Added automatically from request for surgery [id number] Primary osteoarthritis of fi rst carpometacarpal joint of left hand 03/22/2018 Overview (03/22/2018): Added automatically from request for surgery [id number] Arthritis of carpometacarpal (CMC) joint of left thumb 02/10/2018 Surgical History Surgery Date Site/Laterality Comments TONSILLECTOMY AND ADENOIDECTOMY ABLATION uterine ABDOMINAL SURGERY COSMETIC SURGERY EYE SURGERY JOINT REPLACEMENT SKIN BIOPSY MASTECTOMY 11/13/2015 Bilateral BREAST SURGERY BREAST RECONSTRUCTION 11/13/2015, 04/24/2016 THUMB SURGERY 03/23/2018 Medical History Medical History Date Comments Gestational diabetes Cancer (HCC) 2014 bilateral breast --[place] with mastectomy only Obesity BMI - 41 [...] on file Legal Sex Female 8:58 AM TRAVELING PHLEBOTOMIST Gender Identity Not on file Sexual Orientation Not on file Obstetrics History Last Filed Vital Signs Vital Sign Reading Time Taken Comments Blood Pressure 147/82 04/04/2021 8:08 AM TRAVELING PHLEBOTOMIST Pulse 105 04/04/2021 8:08 AM TRAVELING PHLEBOTOMIST Temperature 36.6 C (97.8 F) 04/04/2021 8:08 AM TRAVELING PHLEBOTOMIST Respiratory Rate 16 06/28/2018 8:25 AM TRAVELING PHLEBOTOMIST Oxygen Saturation 100% 06/28/2018 8:25 AM TRAVELING PHLEBOTOMIST Inhaled Oxygen Concentration - - Weight 111.6 kg (246 lb 0.5 oz) 01/14/2024 3:28 PM CDT Height 167.6 cm (5' 5.98) 01/14/2024 3:28 PM CD T Body Mass [...] Vaccine (1 of 2) 2020 Influenza Vaccine (Season Ended) 2025 01/14/2019, 01/30/2017, 02/01/2016, Additional history exists Pneumococcal vaccine <65 Aged Out No longer eligible based on patient's age to complete this topic Medical Devices Implanted Type Area Mica Plate Layer Device Identifier Shelf Expiration Date Model / Serial / Lot Breast Implants Breast [employer] A-4655.62 1.3mm 4x2 Hole T Locking Grid Trapezoid Right Plate Bone 2mm 2.3 - [id number] Implanted:Qty: 1 on 03/23/2018 by Long Garvin MD at [facility] [place] Left: Thumb [employer] A-4655.62 / / [employer] A-5450.16/1 Aptus Trilock 2mm 16mm Hexadrive 6 Midfoot Screw Bone Titanium - [id number] Implanted:Qty: 2 on 03/23/2018 by Long Garvin MD at [facility] [place] Left: Thumb [employer] A-5450.16/1 / / [employer] A-5450.14 Aptus 2mm 14mm Lock Hand Cortical 6mm Head Screw Bone Titanium - [id number] Implanted:Qty: 1 on 03/23/2018 by Long Garvin MD at [facility] [place] Left: Thumb [employer] A-5450.14 / / [employer] A-5400.11 Aptus 2mm 11mm 2 Threaded Hexadrive 6 Self Tapping Tapered Core - [id number] Implanted:Qty: 1 on 03/23/2018 by Long Garvin MD at [facility] [place] Left: Thumb [employer] A-5400.11 / / [employer] A-5450.10 Aptus 2mm 10mm 2 Threaded Locking Hexadrive 6 Atraumatic Tip - [id number] Implanted:Qty: 1 on 03/23/2018 by Long Garvin MD at [facility] Left: Thumb [employer] A-5450.10 / / [employer] A-5400.13/1 Aptus 2mm 13mm 2 Thread Hexadrive 6 Self Tap Atraumatic Tip - [id number] Implanted:Qty: 1 on 03/23/2018 by Long Garvin MD at [facility] [place] Left: Thumb [employer] A-5400.13/1 / / [employer] A-5400.18 2mm 18mm Cortical 6mm Head Screw Bone - [id number] Implanted:Qty: 1 on 03/23/2018 by Long Garvin MD at [facility] [place] Left: Thumb [employer] A-5400.18 / / Insurance [facility] CLAIMS [facility] Advance Directives For more information, please contact: [phone] * Full Code (Latest Code Status on File) Date Activated Date Inactivated Comments 06/20/2018 2:53 PM 06/22/2018 3:27 PM * Full Code Date Activated Date Inactivated Comments 03/23/2018 5:09 PM 03/23/2018 7:56 PM Care Teams Entertainment Lawyer Relationship Specialty Start Date End Date Freddy Durham MD [address] [place], [place] [id number] PCP - General 09/08/16
--- OUTSIDE RECORDS SUMMARY | 2024-10-16 14:10 | XMS_ITS | Continuity of Care Document ---
Author Name [facility] Organization [facility] Care Team Providers Care Act English Tutor Name Role Phone [facility] Unavailable Unavailable Medications Combined list of outpatient [...] (EAR), SANDOZ, 10 ml DROP BTL Active [id number] 10/07/19 2 4 2023 10 Pharmac y Data Transac tion Service Facilit y Allergies, Adverse Reactions, Alerts Combined list of allergies from Department of Defense and Veterans Affairs facilities. It does not include entries that were removed or entered in error. Substance Category Reaction Severity Reaction type Status Date Reported Comments Source No Known Allergies Drug allergy (disorder) active [address] [place] [address] ([facility]) NO KNOWN ALLERGIES Propensity to adverse reactions to drug Active Unknown Organization Immunizations Combined list of available immunizations from the Department of Defense and Veterans Affairs facilities. Immunization Series Date Given Administered By Site Reaction Lot Number CVX Code Drug Tank Insulator Rubber Status Comments Source COVID-19, mRNA, LNP-S, PF, 100 mcg or 50 mcg dose 2021 CASPER, [employer] (MOD) Not Given COVID-19, mRNA, LNP-S, [...] ADM Date DC Date Status Disposition Source [facility] Christiano LOZA ([facility])(Code Number Stamper ecology) TELE CONSULT [id number] Notes Entered by: LITO BARBER 17 Sep 2015 1353 ------- ------- ------- ------- -- Appt against CHUY Rangel 09/[address] [place] [address])(G ynecolo gy) [address] [place] [address])(Code Number Stamper ecology) OUTPATIENT [id number] diagnos is of [place] - being [place] d [place] [id number] MILAGRO LIM 09/23 Released w/o Limitations [address] [place] [address])(G ynecolo gy) [address] [place] [address])(Code Number Stamper ecology) TELE CONSULT [id number] Notes Entered by: VIRIDIANA MCWILLIAMS 10 Oct 2015 1023 ------- ------- ------- ------- -- Scanned Women's Health Records into [facility] MILAGRO LIM 10/[address] [place] [address])(G ynecolo gy) [address] [place] [address])(Code Number Stamper ecology) OUTPATIENT [id number] vulvar biopsy - [phone] MILAGRO LIM 10/16 Released w/o Limitations [address] [place] [address])(G ynecolo gy) [address] [place] [address])(Code Number Stamper ecology) TELE CONSULT [id number] Notes Entered by: DIAN LIM 28 Oct 2015 1648 ------- ------- ------- ------- -- results CHET CRAFT 10/[address] [place] [address])(G ynecolo gy) Procedures Combined list of: 1) Procedures from Department of Veterans Affairs facilities going back up to thelast 18 months, not all VA non-surgical procedures are included; 2) All procedures from the Department of Defense facilities. Procedure Procedure Type Code Date Perfomer Comments Sourc e No data available for this section Ambulatory Pharmacy Biopsy Vulvar Biopsy Vulvar [id number] 10/17/2015 MILAGRO LIM [facility] Non-Physician Phone Call To Patient/Provide r Brief (5-10min) Non-Physician Phone Call To Patient/Provide r Brief (5-10min) [id number] 09/20/2015 CHUY STAUFFER [facility] BIOPSY OF VULVA OR PERINEUM (SEPARATE PROCEDURE); 1 LESION 10/17/2015 [facility] TELE ASSESS & MGT SRV PROV [...] Plan No data available for this section 10/16/2024 Ambulatory Pharmacy Functional Status Combined list of recent functional and cognitive assessments recorded at Department of Defense and Veterans Affairs (VA).VA Functional [place] Measurement (FIM) Scale: 1 = Total Assistance (Subject = 0% +), 2 = Maximal Assistance (Subject = 25% +), 3 = Moderate Assistance (Subject = 50% +), 4 = Minimal Assistance (Subject = 75% +), 5 = Supervision, 6 = Modified [place] (Device), 7 = Complete [place] (Timely, Safely). Assessment Date/Time Source Assessment Type Assessment Skill Assessment Score Assessment Details No data available for this section
--- OUTSIDE RECORDS SUMMARY | 2024-10-16 14:10 | XMS_ITS | Clinical Summary ---
Author Organization [facility] Address [address] [place] [address] Care Team Providers Care Plant Superintendent Name Role Phone Unavailable Primary Care Provider Unavailabl e Source Comments [facility],non-owned Affiliates and Associated Physician Practices is amultiple site organization consisting of ambulatory clinics and hospital sitesin [place], [place], [place] and [place]. This disclosure is being madepursuant to the Care Everywhere program and may not contain all information available regarding this patient. Last updated 18.[facility] Allergies Active Allergy Reactions Criticality Noted Date Comments Amoxicillin Itching 06/05/2019 Medications * Be aware that medications may not be up to date on this document. Alwaysverify current medications with the patient. No known medications Active Problems No known active problems Social History Tobacco Use Types Packs/Day Years Used Date Smoking Tobacco: Never Smokeless Tobacco: Never Alcohol Use Standard Drinks/Week Comments No 0 (1 standard drink = 0.6 oz pur e alcohol) Comments No Sex and Gender Information Value Date Recorded Sex Assigned at Not on file Legal Sex Female 6:56 AM CDT Gender Identity Not on file Sexual Orientation Not on file Last Filed Vital Signs Vital Sign Reading Time Taken Comments Blood Pressure 124/76 06/05/2019 9:43 AM SEARCH ENGINE MARKETING STRATEGIST Pulse 98 06/05/2019 9:43 AM SEARCH ENGINE MARKETING STRATEGIST Temperature 37.3 C (99.2 F) 06/05/2019 9:43 AM SEARCH ENGINE MARKETING STRATEGIST Respiratory Rate 16 06/05/2019 9:43 AM SEARCH ENGINE MARKETING STRATEGIST Oxygen Saturation 97% 06/05/2019 9:43 AM SEARCH ENGINE MARKETING STRATEGIST Inhaled Oxygen Concentration - - Weight 113.4 kg (250 lb) 06/05/2019 9:43 AM SEARCH ENGINE MARKETING STRATEGIST Height 167.6 cm (5' 6) 06/05/2019 9:43 AM SEARCH ENGINE MARKETING STRATEGIST Body Mass Index 40.35 06/05/2019 9:43 AM SEARCH ENGINE MARKETING STRATEGIST Plan of Treatment Health Maintenance Due Date Last Done Comments COLOGUARD (AGES 45-75) - COL ON CA SCREENING 1970 COLON MONITORING 1970 COLONOSCOPY - COLON CA SCREENING 1970 CT COLONOGRAPHY - COLON CA SCREENING 1970 Colorectal Cancer Screening 1970 FIT - COLON CA SCREENING 1970 FLEX SIG - COLON CA SCREENING 1970 LIPID TESTING 1970 MAMMOGRAM 1970 HIV SCREENING 1985 HEPATITIS C SCREENING 12/12/1988 DTAP/TDAP/TD VACCINES (1 - Tdap) 1989 HEPATITIS B VACCINE (1 of 3 - 19+ 3-dose series) 1989 SCREENING FOR DIABETES 06/05/2019 PNEUMOCOCCAL VACCINE 50+ (1 of 1 - PCV) 2020 ZOSTER VACCINE (1 of 2) 2020 COVID-19 VACCINE (1 - 2023-2 5 season) 2024 DEPRESSION SCREENING 05/03/2024 INFLUENZA VACCINE (Season Ended) 2025 HIB VACCINE Aged Out No longer eligi ble based on patient's age to complete this topic HPV VACCINE Aged Out No longer eligi ble based on patient's age to complete this topic MENINGOCOCCAL (Group B) VACC INE SHARED DECISION-MAKING Aged Out No longer eligibl e based on patient's age to complete this topic MENINGOCOCCAL GROUPS A/C/Y/W VACCINE Aged Out No longer eligible b ased on patient's age to complete this topic Insurance
[2024-10-16 14:11] LABS: Add Urine Microscopic? YES; Appearance Urine Clear (Clear); Bacteria Urine None Seen /hpf; Bilirubin Urine Negative (Negative); Blood Urine Negative (Negative); Color Urine Yellow (Yellow); Glucose Urine UA Negative (Negative); Ketones Urine 1+ mg/dL (Negative); Leukocyte Esterase Ur Trace LEU/UL (Negative); Nitrate Urine Negative (Negative); Non Pathogenic Casts 0-2; Protein Urine Negative (Negative); RBC Urine 0-2 /hpf (0-2); Specific Grav Ur 1.007 (1.001-1.035); Squamous Epithelial Cell Urine Occasional /hpf (Few); Urobilinogen Urine 0.2 mg/dL (<2.0); WBC Urine 0-5 /hpf (0-3); pH Urine 5.5 (5.0-9.0)
--- OUTSIDE RECORDS SUMMARY | 2024-10-16 14:11 | XMS_ITS | Referral Summary ---
Author Organization [facility] Address [address] [place] [address] Care Team Providers Care Drug Safety Specialist Name Role Phone Freddy Durham MD Primary [...] (06/22/2018): Added automatically from request for surgery [id number] History of breast cancer 06/22/2018 Overview (06/22/2018): Added automatically from request for surgery [id number] Hx of breast reconstruction 06/22/2018 Overview (06/22/2018): Added automatically from request for surgery [id number] Primary osteoarthritis of fi rst carpometacarpal joint of left hand 03/22/2018 Overview (03/22/2018): Added automatically from request for surgery [id number] Arthritis of carpometacarpal (CMC) joint of left thumb 02/10/2018 Social History Tobacco Use Types Packs/Day Years Used Date Smoking Tobacco: Never Smokeless Tobacco: Never Alcohol Use Standard Drinks/Week Comments No 0 (1 standard drink = 0.6 oz pur e alcohol) Comments No Sex and Gender Information Value Date Recorded Sex Assigned at Not on file Legal Sex Female 8:58 AM SHOP MECHANIC HELPER Gender Identity Not on file Sexual Orientation Not on file Last Filed Vital Signs Vital Sign Reading Time Taken Comments Blood Pressure 147/82 04/04/2021 8:08 AM SHOP MECHANIC HELPER Pulse 105 04/04/2021 8:08 AM SHOP MECHANIC HELPER Temperature 36.6 C (97.8 F) 04/04/2021 8:08 AM SHOP MECHANIC HELPER Respiratory Rate 16 06/28/2018 8:25 AM SHOP MECHANIC HELPER Oxygen Saturation 100% 06/28/2018 8:25 AM SHOP MECHANIC HELPER Inhaled Oxygen Concentration - - Weight 111.6 kg (246 lb 0.5 oz) 01/14/2024 3:28 PM CDT Height 167.6 cm (5' 5.98) 01/14/2024 3:28 PM CD T Body Mass Index 39.73 01/14/2024 3:28 PM CDT Plan of Treatment Not on file Medical Devices Implanted Type Area Java Tech Lead Device Identifier Shelf Expiration Date Model / Serial / Lot Breast Implants Breast [employer] A-4655.62 1.3mm 4x2 Hole T Locking Grid Trapezoid Right Plate Bone 2mm 2.3 - [id number] Implanted:Qty: 1 on 03/23/2018 by Long Garvin MD at [facility] Left: Thumb [employer] A-4655.62 / / [employer] A-5450.16/1 Aptus Trilock 2mm 16mm Hexadrive 6 Midfoot Screw Bone Titanium - [id number] Implanted:Qty: 2 on 03/23/2018 by Long Garvin MD at [facility] [place] Left: Thumb [employer] A-5450.16/1 / / [employer] A-5450.14 Aptus 2mm 14mm Lock Hand Cortical 6mm Head Screw Bone Titanium - [id number] Implanted:Qty: 1 on 03/23/2018 by Long Garvin MD at [facility] [place] Left: Thumb [employer] A-5450.14 / / [employer] A-5400.11 Aptus 2mm 11mm 2 Threaded Hexadrive 6 Self Tapping Tapered Core - [id number] Implanted:Qty: 1 on 03/23/2018 by Long Garvin MD at [facility] Left: Thumb [employer] A-5400.11 / / [employer] A-5450.10 Aptus 2mm 10mm 2 Threaded Locking Hexadrive 6 Atraumatic Tip - [id number] Implanted:Qty: 1 on 03/23/2018 by Long Garvin MD at [facility] [place] Left: Thumb [employer] A-5450.10 / / [employer] A-5400.13/1 Aptus 2mm 13mm 2 Thread Hexadrive 6 Self Tap Atraumatic Tip - [id number] Implanted:Qty: 1 on 03/23/2018 by Long Garvin MD at [facility] [place] Left: Thumb [employer] A-5400.13/1 / / [employer] A-5400.18 2mm 18mm Cortical 6mm Head Screw Bone - [id number] Implanted:Qty: 1 on 03/23/2018 by Long Garvin MD at [facility] [place] Left: Thumb [employer] A-5400.18 / / Insurance [facility] Advance Directives For more information, please contact: [phone] * Full Code (Latest Code Status on File) Date Activated Date Inactivated Comments 06/20/2018 2:53 PM 06/22/2018 3:27 PM * Full Code Date Activated Date Inactivated Comments 03/23/2018 5:09 PM 03/23/2018 7:56 PM Care Teams Drug Safety Specialist Relationship Specialty Start Date End Date Freddy Durham MD [address] [place] [address] PCP - General 09/08/16
[2024-10-16 14:12] LABS: Hemoglobin A1C 5.5 % (<5.7)
[2024-10-16 14:21] LABS: LDL Cholesterol Direct 90 mg/dL
[2024-10-16 14:40] LABS: Vitamin D 25 Hydroxy 31.5 ng/mL
== END 2024-10-16 13:15 | disposition home or self-care (01) ==
LOC: ANHLAB 13:16
PROVIDERS: PCP Family Medicine; Visit Provider Family Medicine
DX: Z00.00 Encounter for general adult medical examination without abnormal findings (principal); E78.5 Hyperlipidemia, unspecified; E55.9 Vitamin D deficiency, unspecified; R53.83 Other fatigue
CPT/HCPCS: 36415; 80053; 80061; 81001; 82306; 83036; 84443; 85027